=== PATIENT | male | born 1960 | race Caucasian/White ===

== ENCOUNTER → 2017-12-17 | Outpatient (CLI) | payer MEDICARE ==
[~2017-12-17] MED LIST: ALBUTEROL0.09 MG/AC INH; BACTRIM DS 8001 TA1 PO; CLINDAMYCIN HC300 MG PO; FLEXERIL10 MG PO; FLEXERIL5 MG PO; GABAPENTIN300 M1 PO; LYRICA75 MG PO; Lopressor25 MG PO; MOTRIN800 MG PO; Magnesium Oxid400 MG PO; NUCYNTA75 MG PO; PRILOSEC20 MG PO; TRAMADOL HCL50 MG PO; ULTRAM50 MG PO
== END | disposition home or self-care (01) ==
LOC: RAD 07:29
DX: M25.511 Pain in right shoulder (principal); M25.512 Pain in left shoulder

== ENCOUNTER 2018-09-09 02:33 | Inpatient (IN) | payer MEDICARE ==
[2018-09-09] VITALS (14 sets, daily range): BP systolic 94–152; BP diastolic 60–85
[~2018-09-09] VITALS: Ht 175.2 cm; Wt 69.2 kg
--- NOTE | ~2018-09-09 | EKG ---
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
--- NOTE | ~2018-09-09 | CON ---
[place], [place] REPORT OF CONSULTATION NAME: JEFFREY DUTTA UNIT #: [id number] ROOM: 507 DOCTOR: MAGEN KNOTT [place] BIRTHDATE: [birth year] DOS: 09/09/2018 GASTROENDOSCOPIC CONSULTATION HISTORY OF PRESENT ILLNESS: A 58-year-old patient who presented with chief complaint of abdominal pain, epigastric distress, not feeling well, being tired. The patient had complained of left lower quadrant pain, cross abdominal pain and eventually through the Emergency Room a panel of workup was done including his INR was 1.0. Lactic acid 2.5. Comprehensive metabolic panel GFR greater than 60. His sodium was 129 and his total bilirubin 1.3 with a lipase of 2900, C-reactive protein obviously elevated, troponin negative. CT scan of the abdomen and pelvis was done. Moderate stool throughout the colon and rectum suggesting constipation, generalized osteopenia. CBC: White blood cell 6, H and H of 6 and 18[address]cy[address] indices. CT scan of the abdomen was reviewed. Status post transfusion of packed cells x 2. Improvement of H and H 7.8 and 22, platelets 155. Comprehensive metabolic panel was reassessed. Sodium has corrected to 134, bilirubin 1.6, alkaline phosphatase normal. PAST MEDICAL HISTORY: COPD, chronic anemia, alcohol dependency, systemic hypertension, gastroesophageal reflux, Parkinson's history. PAST SURGICAL HISTORY: Tracheostomy and PEG tube in the past and bleeding from the site and eventual recovery of the appetite and swallowing and removal of PEG. FAMILY HISTORY: Noncontributory. ALLERGIES: No known medication. SOCIAL HISTORY: Smoker of a pack and half cigarettes, a 6-pack of beer daily and pain medications. MEDICATIONS: List reviewed. He has been on beta dana and PPI amongst the other. REVIEW OF SYSTEMS: HEENT: Denies double vision, blurred vision. RESPIRATORY: Denies shortness of breath. CARDIOVASCULAR: Denies chest pain. DIGESTIVE SYSTEM: Nonspecific abdominal pain and not feeling as well as tiredness. PHYSICAL EXAMINATION: VITAL SIGNS: Stable. The patient is pink in color. HEENT: In general facial characteristics of the pink puffers. NECK: Supple, no thyromegaly. CHEST: Symmetric anatomy, decreased air entry in general. No wheezes. HEART: Normal sinus rhythm, no gallop, no murmur. ABDOMEN: Cross abdominal nonspecific tenderness. Bowel sounds present. EXTREMITIES: No cyanosis, no pedal edema. [place], [place] REPORT OF CONSULTATION NAME: JEFFREY DUTTA UNIT #: [id number] ROOM: 507 DOCTOR: YOKASTA KNOTT MD BIRTHDATE: [birth year] NEUROLOGIC: Alert and oriented to time, place, person. Sensory, motor intact. Cranial nerves 2-12 intact. IMPRESSION: Pancreatitis secondary to multifactorial issues, alcohol and nicotine dependency, chronic alcoholism with macrocytic indices, possible folate deficiency, anemia, profound level, status post transfusion. PLAN AND DISCUSSION: This patient has had a CT scan that had showed hypertrophic fold of the stomach. Biopsies will be done ruling out Menetrier's disease, work in progress. YOKASTA KNOTT MD CM:CONSTR:REPORT OF CONSULTATION 1935 09/23/18 1427 interface
--- NOTE | ~2018-09-09 | O ---
[place], [place] OPERATIVE NOTE NAME: JEFFREY DUTTA UNIT #: [id number] ROOM: 507 DOCTOR: HEDY ROSA,YOKASTA BIRTHDATE: [birth year] DOS: 09/09/2018 SUBJECTIVE: The patient has presented with anemia, profound and cross abdominal pain with pancreatitis. PROCEDURE: Today's procedure part of investigation is panendoscopy plus biopsies. PREMEDICATION: Propofol. SCOPE: Olympus forward-viewing gastroscope Q10 video. REPORT: After putting the patient in left lateral position and application of lubricant to the scope, the scope was introduced; thereafter, under direct visualization, advanced through the length of esophagus without difficulty. The esophagus was free of esophageal varicosity. Gastric pouch was entered, hypertrophic fold of the stomach was noticed in greater and lesser curvature. Multiple biopsies were obtained. The tissue is soft on tension and multiple biopsy from the greater curvature of hypertrophic fold was obtained after photographic series ruling G-cell hyperplasia and antrum was biopsied ruling out H. pylori to rule out infectious causes. Duodenal bulb, second and third part beyond ligament of Treitz was checked, benign. The patient extubated, tolerated the procedure well. IMPRESSION: Hypertrophic fold, gastric pouch ruling out Menetrier's disease, ruling out H. pylori. No GI bleed in the upper GI tract. PLAN AND DISCUSSION: Awaiting biopsy report. At the present time, 40 mg of PPI would suffice, transfusion would suffice, management of pancreatitis with hydration is going to be on the way and workup in progress. YOKASTA KNOTT MD CM:OPRECORD:OPERATIVE NOTE [id number] YOKASTA KNOTT MD 09/16/18 1544 interface
[2018-09-09] MEDS ORDERED: PERCOCET 7.5-31 EACH PO (02:42)
[2018-09-09] MEDS ORDERED: PROTONIX40 MG PO (02:43)
[2018-09-09] MEDS ORDERED: TRAZODONE50 MG PO (02:44)
[2018-09-09] MEDS ORDERED: MIRAPEX0.5 MG PO (02:44)
--- NOTE | 2018-09-09 03:20 | NUR ---
PATIENT STATES PAIN MED WAS EFFECTIVE FOR PAIN. PATIENT STILL STATES HE HAS PAIN BUT RATES IT 5 OUT OF 10 INSTEAD OF 10 OUT OF 10.
[2018-09-09 03:29] LABS: HEMATOCRIT 18.6 % (42.0-52.0); HEMOGLOBIN 6.7 g/dl (14.0-18.0); MEAN CORPUSCULAR HGB 42.1 pg (27.0-31.0); MEAN PLATELET VOLUME 10.1 fl (9.6-12.3); NUCLEATED RED BLOOD CELL 0.3 % (0.0-0.0); PLATELET COUNT AUTOMATED 197 10*3/uL (130-400); RED BLOOD COUNT 1.59 10*6/uL (4.50-5.90); WHITE BLOOD COUNT 6.4 10*3/uL (4.8-10.8)
[2018-09-09 03:40] LABS: ACT PARTIAL THROMBO TIME 23.4 SECONDS (20.0-32.1)
[2018-09-09 03:45] LABS: ALBUMIN 3.4 gm/dl (3.1-4.5); ALKALINE PHOSPHATASE 86 U/L (45-117); BUN 9 mg/dl (7-24); CHLORIDE 96 mmol/L (98-107); CREATININE 1.13 mg/dL (0.70-1.30); LIPASE 2936 U/L (73-393); POTASSIUM 4.2 mmol/L (3.5-5.1); SGOT/AST 33 IU/L (3-35); SGPT/ALT 34 U/L (12-78); SODIUM 129 mmol/L (136-145); TOTAL PROTEIN 6.9 gm/dL (6.4-8.2); TROPONIN I < 0.015 ng/ml (<0.045)
[2018-09-09 03:58] LABS: TOTAL CELLS COUNTED 100 #CELLS
[2018-09-09 03:59] LABS: PLATELET SUFFICIENCY NORMAL (NORMAL)
--- NOTE | 2018-09-09 04:00 | NUR ---
PATIENT STATES PAIN MEDICATION WAS HELPFUL. PATIENT RATES PAIN FROM 7 OUT OF 10 TO 3OUT OF TEN.
--- NOTE | 2018-09-09 06:37 | NUR ---
A 58, admitted to , under the services of ROMAN Lockwood DO with a diagnosis of PANCREATITIS. Chief complaint is ABD PAIN. Patient arrived via stretcher from ER. Monitor applied. Initial assessment completed. Vital signs taken and recorded. ROMAN LOCKWOOD DO notified of admission to the unit. Orders received. See assessment for past medical history, medications and allergies. Patient and/or family oriented to unit. [facility] visitation policy reviewed. Clothing/patient valuable form completed. RENNY JACOBSEN
--- NOTE | 2018-09-09 06:53 | NUR ---
MED REC COMPLETED WITH PATIENT ALERT AND ORIENTED TO PERSON PLACE AND TIME
--- NOTE | 2018-09-09 07:36 | NUR ---
DR ESCALONA AWARE OF MED REC BEING COMPLETE, PATIENT REQUESTING NICOTINE PATCH, AND HEMOGLOBIN
--- NOTE | 2018-09-09 08:39 | NUR ---
CALLED DR HEDY DE LEON SENIOR BUSINESS INTELLIGENCE ANALYST REQUEST. UPDATED HIM ABOUT PATIENT W/SCAN AND LAB RESULTS. HE SAID TO KEEP HIM NPO FOR NOW AND HE WILL BE IN TO SEE HIM.
--- NOTE | 2018-09-09 13:53 | NUR ---
CALLED ABOUT AN HOUR AGO FOR A ONE TIME DOSE OF MORPHINE. PATIENT IS STILL IN A LOT OF PAIN. HE IS HUNCHED OVER WHILE WALKING. PATIENT HAS ANOTHER DOSE OF MORPHINE HE CAN HAVE NOW.
--- NOTE | 2018-09-09 14:26 | NUR ---
CALLED DR. MONTERROSO REGARDING PATIENT PAIN AND TREMORS. RECEIVED NEW ORDERS.
--- NOTE | 2018-09-09 15:23 | NUR ---
PER PATIENT HE HAS ALWAYS HAD A HISTORY OF TREMORS. HE SAID HE HAS HAD TREMORS EVER SINCE HE WAS ELECTROCUTED. PT SAYS HIS LAST DRINK WAS ON FRIDAY AND HE SAID HE HAD 2-3 CANS OF BEER. HE SAID SOME DAYS HE HAS UP TO 5 BEERS.
--- NOTE | 2018-09-09 15:44 | NUR ---
PT SLEEPING, RESP EASY AND NONLABORED. BLOOD TRANSFUSING PER ORDERS. CALL LIGHT IN REACH. WILL MONITOR.
--- NOTE | 2018-09-09 17:05 | NUR ---
BLOOD TRANSFUSION COMPLETE. PT TOLERATED WELL. VSS. NO ADVERSE REACTION NOTED.
[2018-09-09 18:06] LABS: BASO # 0.1 10*3/uL (0.0-0.1); BASO % 0.9 % (0.0-1.0); EOS % 0.6 % (1.0-4.0); HEMATOCRIT 22.1 % (42.0-52.0); HEMOGLOBIN 7.8 g/dl (14.0-18.0); LYMPH # 1.1 10*3/uL (1.3-4.4); LYMPH % 16.5 % (27.0-41.0); MEAN CORPUSCULAR HGB CONC 35.3 g/dl (33.0-37.0); MEAN PLATELET VOLUME 10.5 fl (9.6-12.3); MONO # 0.6 10*3/uL (0.1-1.0); MONO % 9.4 % (3.0-9.0); NEUT # 4.9 10*3/uL (2.3-7.9); NEUT % 72.3 % (47.0-73.0); NUCLEATED RED BLOOD CELL 0.4 % (0.0-0.0); PLATELET COUNT AUTOMATED 155 10*3/uL (130-400); RED BLOOD COUNT 2.05 10*6/uL (4.50-5.90); RED CELL DISTRI WIDTH 25.6 % (0-14.5); WHITE BLOOD COUNT 6.7 10*3/uL (4.8-10.8)
[2018-09-09 18:10] LABS: MEAN CELL VOLUME 107.8 fl (80.0-94.0)
[2018-09-09 18:21] LABS: ALBUMIN 2.9 gm/dl (3.1-4.5); ALKALINE PHOSPHATASE 73 U/L (45-117); BUN 7 mg/dl (7-24); CHLORIDE 102 mmol/L (98-107); CREATININE 0.78 mg/dL (0.70-1.30); POTASSIUM 3.8 mmol/L (3.5-5.1); SGOT/AST 31 IU/L (3-35); SGPT/ALT 26 U/L (12-78); SODIUM 134 mmol/L (136-145)
--- NOTE | 2018-09-09 21:49 | NUR ---
PATIENT MEDICATED WITH PRN DILAUDID ORDERD FOR C/O ABDOMINAL PAIN RATED 7/10
[2018-09-10] VITALS: BP 117/83
[2018-09-10 02:50] LABS: BILIRUBIN NEGATIVE (NEGATIVE); BLOOD NEGATIVE (NEGATIVE); CLARITY CLEAR (CLEAR); COLOR YELLOW (YELLOW); GLUCOSE NEGATIVE (NEGATIVE); KETONE TRACE (NEGATIVE); LEUKO ESTERASE TRACE (NEGATIVE); NITRITE POSITIVE (NEGATIVE); SPECIFIC GRAVITY 1.015 (1.005-1.030); UROBILINOGEN 0.2 E.U./dl (0.2-1.0)
[2018-09-10 02:55] LABS: BACTERIA TRACE
[2018-09-10 06:57] LABS: HEMATOCRIT 25.1 % (42.0-52.0); HEMOGLOBIN 8.5 g/dl (14.0-18.0); MEAN CELL VOLUME 110.6 fl (80.0-94.0); MEAN CORPUSCULAR HGB 37.4 pg (27.0-31.0); MEAN CORPUSCULAR HGB CONC 33.9 g/dl (33.0-37.0); MEAN PLATELET VOLUME 11.2 fl (9.6-12.3); PLATELET COUNT AUTOMATED 166 10*3/uL (130-400); RED BLOOD COUNT 2.27 10*6/uL (4.50-5.90); RED CELL DISTRI WIDTH 26.3 % (0-14.5); WHITE BLOOD COUNT 7.5 10*3/uL (4.8-10.8)
[2018-09-10 07:10] LABS: ALKALINE PHOSPHATASE 76 U/L (45-117); BUN 8 mg/dl (7-24); CHLORIDE 103 mmol/L (98-107); CHOLESTEROL 117 mg/dL (<200); CREATININE 0.74 mg/dL (0.70-1.30); HDL CHOLESTEROL 71 mg/dl (40-60); LDL CHOLESTEROL 32 mg/dL (9-159); LIPASE 209 U/L (73-393); POTASSIUM 3.7 mmol/L (3.5-5.1); SGOT/AST 33 IU/L (3-35); SGPT/ALT 27 U/L (12-78); SODIUM 136 mmol/L (136-145); TOTAL PROTEIN 6.2 gm/dL (6.4-8.2); TRIGLYCERIDES 71 mg/dl (<150); VLDL CHOLESTEROL 14 mg/dL (6-40)
[2018-09-10 07:28] LABS: POLYCHROMASIA SLIGHT; TOTAL CELLS COUNTED 100 #CELLS
[2018-09-10 07:29] LABS: PLATELET SUFFICIENCY NORMAL (NORMAL)
[2018-09-10 07:51] LABS: VITAMIN D, 25-HYDROXY 15.7 ng/mL (30-100)
[2018-09-10 08:00] VITALS: BP 112/64
--- NOTE | 2018-09-10 10:00 | NUR ---
PT COMPLAIN OF ABODMINAL PAIN, NORCO GIVEN
--- NOTE | 2018-09-10 10:10 | NUR ---
PT COMPLAIN OF ABDOMINAL PAIN 09/16. NORCO GIVEN. GIVEN SCHEDULED ATIVAN. PT ALERT AND ORIENTED HOWEVER FORGETFUL. STATES WHEN HE WOKE UP HE THOUGHT HE WAS AT HOME. PT ASSISTED TO BATHROOM AND BACK TO BED.
--- NOTE | 2018-09-10 11:00 | NUR ---
PT SLEEPING/RESING QUIETLY, NO NEEDS NOTED AT THIS TIME
[2018-09-10 12:00] VITALS: BP 126/69
--- NOTE | 2018-09-10 12:25 | NUR ---
PT COMPLAIN OF PAIN, DILAUDID GIVEN
--- NOTE | 2018-09-10 12:36 | NUR ---
MEDICATED WITH PRN IV DILAUDID FOR ABDOMINAL PAIN.
--- NOTE | 2018-09-10 13:00 | NUR ---
PT SLEEPING/RESTING QUIETLY
[2018-09-10 16:00] VITALS: BP 118/66
--- NOTE | 2018-09-10 16:28 | NUR ---
PT COMPLAIN OF STOMACH PAIN 09/16, NORCO GIVEN.
--- NOTE | 2018-09-10 17:25 | NUR ---
pt resting in bed
--- NOTE | 2018-09-10 18:54 | NUR ---
pt was sitting up in chair with chair alarm on, pt walked out to nursing station holding chair alarm. states he "unhooked it, i know all the tricks in the book" assisted patient back to bed, alarm on.
--- NOTE | 2018-09-10 19:00 | NUR ---
PT IS ASLEEP WITH FAMILY AT BEDSIDE. UPON ENTERING ROOM PATIENT AWAKENS AND STATES THAT HE IS EXPERIENCING ABDOMINAL PAIN AND IS REQUESTING PAIN MEDICATION. PATIENT WAS EDUCATED ON THE NEXT AVAILABLE DOSE. THERE DOES NOT APPEAR TO BE ANY VISIBLE TREMORS AND PATIENT DENIES ALL OTHER WITHDRAWAL SYMPTOMS. CALL LIGHT IS WITHIN REACH, BED ALARM ON. WILL MEDICATE WHEN DUE.
--- NOTE | 2018-09-10 19:39 | NUR ---
24 HR CHART CHECK COMPLETE.
[2018-09-10 20:00] VITALS: BP 117/68
[2018-09-11] VITALS: BP 126/73
[2018-09-11 05:52] LABS: HEMATOCRIT 24.3 % (42.0-52.0); HEMOGLOBIN 8.1 g/dl (14.0-18.0); MEAN CORPUSCULAR HGB 37.3 pg (27.0-31.0); MEAN CORPUSCULAR HGB CONC 33.3 g/dl (33.0-37.0); PLATELET COUNT AUTOMATED 160 10*3/uL (130-400); RED BLOOD COUNT 2.17 10*6/uL (4.50-5.90); RED CELL DISTRI WIDTH 25.9 % (0-14.5); WHITE BLOOD COUNT 8.1 10*3/uL (4.8-10.8)
[2018-09-11 06:12] LABS: ALBUMIN 2.7 gm/dl (3.1-4.5); ALKALINE PHOSPHATASE 76 U/L (45-117); BUN 8 mg/dl (7-24); CHLORIDE 102 mmol/L (98-107); POTASSIUM 3.1 mmol/L (3.5-5.1); SGOT/AST 37 IU/L (3-35); SGPT/ALT 27 U/L (12-78); SODIUM 135 mmol/L (136-145)
[2018-09-11 06:32] LABS: PLATELET SUFFICIENCY NORMAL (NORMAL); POLYCHROMASIA SLIGHT; ROULEAUX SLIGHT; TOTAL CELLS COUNTED 100 #CELLS
--- NOTE | 2018-09-11 07:46 | NUR ---
PT UP OOB STATING HE IS LEAVING TODAY. BED ALRM GOING OFF AND PT WAS STUMBLING HOLDING ON TO WALKER. PT HELPED BACK TO BED AND MEDICATED WITH PRN ATIVAN FOR INCREASED AGITATION. PT ALSO C/O ABDOMINAL PAIN. PT RATES PAIN 10/10 AND MEDICATED WITH PRN DILAUDID.
[2018-09-11] MEDS ORDERED: VITAMIN D32000 UNI1 PO (10:39)
--- NOTE | 2018-09-11 11:16 | NUR ---
PT DISCHARGED HOME AT THIS TIME WITH HIS . PT TRANSPORTED OUT VIA WHEELCHAIR. BOTH HEPLOCKS AND DECORATING CONSULTANT DISCONTINUED. FOLLOW UP CARE DISCUSSED WELL DISCHARGE INSTRUCTIONS.
== END 2018-09-11 11:16 | disposition home or self-care (01) | DRG 377 ==
LOC: ED 02:33 → 5E 06:09 → EDHOLD 06:09 → 5E 06:22
PROVIDERS: Emergency Medicine Emergency Medical Services; Internal Medicine; Student in an Organized Health Care Education/Training Program; ADMIT Internal Medicine
PROC: 30233N1 Transfusion of Nonautologous Red Blood Cells into Peripheral Vein, Percutaneous Approach (ICD-10-PCS; principal; 2018-09-09)
PROC: 0DB68ZX Excision of Stomach, Via Natural or Artificial Opening Endoscopic, Diagnostic (ICD-10-PCS; principal; 2018-09-09)
DX: K29.01 Acute gastritis with bleeding (principal); K85.90 Acute pancreatitis without necrosis or infection, unspecified; E87.2 Acidosis; E87.1 Hypo-osmolality and hyponatremia; N39.0 Urinary tract infection, site not specified; Z85.038 Personal history of other malignant neoplasm of large intestine; K57.90 Diverticulosis of intestine, part unspecified, without perforation or abscess without bleeding; J44.9 Chronic obstructive pulmonary disease, unspecified; I10 Essential (primary) hypertension; K21.9 Gastro-esophageal reflux disease without esophagitis; G20 Parkinson's disease; D64.9 Anemia, unspecified; F10.20 Alcohol dependence, uncomplicated; Y90.9 Presence of alcohol in blood, level not specified; F17.210 Nicotine dependence, cigarettes, uncomplicated; Z79.899 Other long term (current) drug therapy; Z86.73 Personal history of transient ischemic attack (TIA), and cerebral infarction without residual deficits; Z82.49 Family history of ischemic heart disease and other diseases of the circulatory system; Z83.3 Family history of diabetes mellitus; Z87.01 Personal history of pneumonia (recurrent); Z93.0 Tracheostomy status; Z93.1 Gastrostomy status

== ENCOUNTER → 2018-09-30 | Day surgery (SDC) | payer MEDICARE ==
[~2018-09-30] VITALS: Ht 175.2 cm; Wt 71.7 kg
[~2018-09-30] MED LIST changes: +MIRAPEX0.5 MG PO; +PERCOCET 7.5-31 EACH PO; +PROTONIX40 MG PO; +TRAZODONE50 MG PO; +VITAMIN D32000 UNI1 PO
--- NOTE | ~2018-09-30 | O ---
[place], [place] OPERATIVE NOTE NAME: JEFFREY DUTTA UNIT #: [id number] ROOM: DOCTOR: YOKASTA KNOTT MD BIRTHDATE: [birth year] DOS: 09/30/2018 HISTORY OF PRESENT ILLNESS: The patient has presented with chief complaint of history of anemia, profound degree with H and H of 7 and 21, status post transfusion of 2 units packed cell on 09/10/2018, undergoing further followup as outpatient. PAST MEDICAL HISTORY: Associated hypertension, Parkinsonism, CVA, TIA, and GERD. SOCIAL HISTORY: Smoker of [id number] pack a day, 6 pack alcohol beer a day. PROCEDURE: Today's procedure part of investigation is colonoscopy plus piecemeal polypectomy. PREMEDICATION: Propofol. SCOPE: Olympus forward-viewing colonoscope 10L video. REPORT: After putting the patient in left lateral position and application of lubricant to the scope, scope was introduced. Thereafter, under direct visualization, advanced through the length of colon without difficulty. Base of the cecum explored. Appendiceal site and ileocecal valve was defined. No acute pathology identified. Sessile polypoid lesion in sigmoid colon with piecemeal polypectomy removed. The patient tolerated the procedure well. IMPRESSION: Sessile colonic polyp. No source of bleed from lower gastrointestinal tract. PLAN: High fiber. ACTIVITY: Ad denise. FOLLOWUP: As outpatient. Thank you very much indeed for your kind referral. [place], [place] OPERATIVE NOTE NAME: JEFFREY DUTTA UNIT #: [id number] ROOM: DOCTOR: YOKASTA KNOTT MD BIRTHDATE: [birth year] YOKASTA KNOTT MD CM:OPRECORD:OPERATIVE NOTE [id number] YOKASTA KNOTT MD 09/30/18 1320 interface
[2018-09-30 10:15] VITALS: BP 115/58
[2018-09-30 11:18] VITALS: BP 101/54
[2018-09-30 11:33] VITALS: BP 107/59
[2018-09-30 11:48] VITALS: BP 110/64
== END | disposition home or self-care (01) ==
LOC: SDC 09-24 08:45
DX: K63.5 Polyp of colon (principal); D64.9 Anemia, unspecified; I10 Essential (primary) hypertension; K21.9 Gastro-esophageal reflux disease without esophagitis; G20 Parkinson's disease; Z86.73 Personal history of transient ischemic attack (TIA), and cerebral infarction without residual deficits; Z72.89 Other problems related to lifestyle; Z86.010 Personal history of colon polyps; Z85.038 Personal history of other malignant neoplasm of large intestine; Z79.899 Other long term (current) drug therapy; Z98.890 Other specified postprocedural states; F17.210 Nicotine dependence, cigarettes, uncomplicated

== ENCOUNTER → 2019-09-08 | Outpatient (CLI) | payer MEDICARE ==
[2019-09-08 10:07] LABS: MEAN CELL VOLUME 122.5 fl (80.0-94.0); MEAN CORPUSCULAR HGB 42.7 pg (27.0-31.0); MEAN CORPUSCULAR HGB CONC 34.9 g/dl (33.0-37.0); MEAN PLATELET VOLUME 11.3 fl (9.6-12.3); NUCLEATED RED BLOOD CELL 0.7 % (0.0-0.0); RED BLOOD COUNT 0.89 10*6/uL (4.50-5.90)
[2019-09-08 10:11] LABS: HEMATOCRIT 10.9 % (42.0-52.0)
[2019-09-08 10:37] LABS: ALBUMIN 3.1 gm/dl (3.1-4.5); BUN 8 mg/dl (7-24); CHLORIDE 96 mmol/L (98-107); CHOLESTEROL 87 mg/dL (<200); CREATININE 1.05 mg/dL (0.70-1.30); HDL CHOLESTEROL 55 mg/dl (40-60); IRON 264 ug/dL (65-175); POTASSIUM 4.4 mmol/L (3.5-5.1); SGOT/AST 37 IU/L (3-35); SGPT/ALT 30 U/L (12-78); SODIUM 126 mmol/L (136-145)
[2019-09-08 10:39] LABS: ALKALINE PHOSPHATASE 87 U/L (45-117); LDL CHOLESTEROL 21 mg/dL (9-159); TOTAL PROTEIN 6.8 gm/dL (6.4-8.2); TRIGLYCERIDES 56 mg/dl (<150); VLDL CHOLESTEROL 11 mg/dL (6-40)
== END | disposition home or self-care (01) ==
LOC: LAB 09:33
PROVIDERS: Registered Nurse Flight
DX: Z12.5 Encounter for screening for malignant neoplasm of prostate (principal); R97.20 Elevated prostate specific antigen [PSA]; D64.9 Anemia, unspecified; R79.89 Other specified abnormal findings of blood chemistry

== ENCOUNTER 2019-09-09 23:16 | Inpatient (IN) | payer MEDICARE ==
[~2019-09-09] VITALS: Ht 175.3 cm; Wt 75.4 kg
[2019-09-09 23:27] VITALS: BP 108/54
[2019-09-10] VITALS (30 sets, daily range): BP systolic 92–122; BP diastolic 43–72
[2019-09-10 00:10] LABS: ACT PARTIAL THROMBO TIME 27.6 SECONDS (20.0-32.1); INTERNATIONAL NORM RATIO 1.1 (2.0-3.5)
[2019-09-10 00:17] LABS: ALBUMIN 3.1 gm/dl (3.1-4.5); ALKALINE PHOSPHATASE 82 U/L (45-117); BUN 9 mg/dl (7-24); CHLORIDE 94 mmol/L (98-107); CREATININE 0.96 mg/dL (0.70-1.30); POTASSIUM 3.9 mmol/L (3.5-5.1); SGOT/AST 35 IU/L (3-35); SGPT/ALT 27 U/L (12-78); SODIUM 124 mmol/L (136-145); TOTAL PROTEIN 6.6 gm/dL (6.4-8.2)
[2019-09-10 00:19] LABS: MEAN CELL VOLUME 125.3 fl (80.0-94.0); MEAN CORPUSCULAR HGB 41.8 pg (27.0-31.0); MEAN CORPUSCULAR HGB CONC 33.3 g/dl (33.0-37.0); MEAN PLATELET VOLUME 11.6 fl (9.6-12.3); NUCLEATED RED BLOOD CELL 0.1 10*3/uL (0.0-0.0); NUCLEATED RED BLOOD CELL 1.2 % (0.0-0.0); PLATELET COUNT AUTOMATED 99 10*3/uL (130-400); RED BLOOD COUNT 0.79 10*6/uL (4.50-5.90); RED CELL DISTRI WIDTH 25.2 % (0-14.5); WHITE BLOOD COUNT 4.3 10*3/uL (4.8-10.8)
[2019-09-10 00:31] LABS: HEMATOCRIT 9.9 % (42.0-52.0)
[2019-09-10 01:09] LABS: TOTAL CELLS COUNTED 100 #CELLS
[2019-09-10 01:15] LABS: PLATELET SUFFICIENCY LOW (NORMAL); SCHISTOCYTES FEW
[2019-09-10 07:20] LABS: MEAN CORPUSCULAR HGB 36.3 pg (27.0-31.0); PLATELET COUNT AUTOMATED 100 10*3/uL (130-400); RED BLOOD COUNT 1.71 10*6/uL (4.50-5.90); RED CELL DISTRI WIDTH 25.2 % (0-14.5)
[2019-09-10 07:24] LABS: MEAN CELL VOLUME 100.6 fl (80.0-94.0)
[2019-09-10 07:26] LABS: ALBUMIN 2.9 gm/dl (3.1-4.5); ALKALINE PHOSPHATASE 73 U/L (45-117); BUN 9 mg/dl (7-24); CHLORIDE 99 mmol/L (98-107); CHOLESTEROL 82 mg/dL (<200); CREATININE 0.84 mg/dL (0.70-1.30); HDL CHOLESTEROL 48 mg/dl (40-60); HEMATOCRIT 17.2 % (42.0-52.0); IRON 242 ug/dL (65-175); LDH 149 U/L (87-241); LDL CHOLESTEROL 22 mg/dL (9-159); POTASSIUM 4.1 mmol/L (3.5-5.1); SGOT/AST 34 IU/L (3-35); SGPT/ALT 22 U/L (12-78); SODIUM 129 mmol/L (136-145); TRIGLYCERIDES 60 mg/dl (<150); VLDL CHOLESTEROL 12 mg/dL (6-40)
[2019-09-10 07:34] LABS: FREE T4 0.98 ng/dl (0.76-1.46); TOTAL IRON BINDING CAPACITY 246 ug/dl (250-450)
[2019-09-10 07:41] LABS: BASOPHILS 2 % (0-1); PLATELET SUFFICIENCY LOW (NORMAL); TOTAL CELLS COUNTED 100 #CELLS
[2019-09-10 08:20] LABS: RETICULOCYTE % 2.56 % (0.50-2.50)
[2019-09-10 08:44] LABS: VITAMIN D, 25-HYDROXY 18.4 ng/mL (30-100)
[2019-09-10 10:03] LABS: BILIRUBIN NEGATIVE (NEGATIVE); BLOOD NEGATIVE (NEGATIVE); CLARITY CLEAR (CLEAR); COLOR YELLOW (YELLOW); EPITHELIAL CELLS 0-2; GLUCOSE NEGATIVE (NEGATIVE); KETONE NEGATIVE (NEGATIVE); LEUKO ESTERASE NEGATIVE (NEGATIVE); NITRITE NEGATIVE (NEGATIVE); PH 6.5 (5.0-9.0); RBC 0-2 rbc/hpf (0-2); SPECIFIC GRAVITY 1.005 (1.005-1.030); UROBILINOGEN 0.2 E.U./dl (0.2-1.0); WBC 0-2 wbc/hpf (0-5)
[2019-09-10 13:10] LABS: HEMATOCRIT 23.4 % (42.0-52.0); MEAN CELL VOLUME 97.9 fl (80.0-94.0); MEAN CORPUSCULAR HGB 34.7 pg (27.0-31.0); MEAN CORPUSCULAR HGB CONC 35.5 g/dl (33.0-37.0); MEAN PLATELET VOLUME 11.9 fl (9.6-12.3); NUCLEATED RED BLOOD CELL 0.1 10*3/uL (0.0-0.0); NUCLEATED RED BLOOD CELL 1.7 % (0.0-0.0); PLATELET COUNT AUTOMATED 105 10*3/uL (130-400); RED BLOOD COUNT 2.39 10*6/uL (4.50-5.90); RED CELL DISTRI WIDTH 25.2 % (0-14.5); WHITE BLOOD COUNT 4.8 10*3/uL (4.8-10.8)
[2019-09-10 13:32] LABS: PLATELET SUFFICIENCY LOW (NORMAL); TOTAL CELLS COUNTED 100 #CELLS
[2019-09-10 19:07] LABS: HEMATOCRIT 28.4 % (42.0-52.0); MEAN CELL VOLUME 96.9 fl (80.0-94.0); MEAN CORPUSCULAR HGB 33.8 pg (27.0-31.0); MEAN CORPUSCULAR HGB CONC 34.9 g/dl (33.0-37.0); NUCLEATED RED BLOOD CELL 0.1 10*3/uL (0.0-0.0); PLATELET COUNT AUTOMATED 99 10*3/uL (130-400); RED BLOOD COUNT 2.93 10*6/uL (4.50-5.90); RED CELL DISTRI WIDTH 24.1 % (0-14.5)
[2019-09-10 19:24] LABS: TOTAL CELLS COUNTED 100 #CELLS
[2019-09-10 19:25] LABS: BURR CELLS FEW; PLATELET SUFFICIENCY LOW (NORMAL)
[2019-09-10 19:26] LABS: ACANTHOCYTES FEW; OVALOCYTES FEW
[2019-09-11] VITALS: BP 114/61
[2019-09-11 04:00] VITALS: BP 119/50
[2019-09-11 05:50] LABS: BUN 16 mg/dl (7-24); CHLORIDE 100 mmol/L (98-107); POTASSIUM 3.9 mmol/L (3.5-5.1); SODIUM 131 mmol/L (136-145)
[2019-09-11 06:22] LABS: HEMATOCRIT 23.9 % (42.0-52.0); MEAN CORPUSCULAR HGB 34.4 pg (27.0-31.0); MEAN CORPUSCULAR HGB CONC 35.1 g/dl (33.0-37.0); MEAN PLATELET VOLUME 11.8 fl (9.6-12.3); NUCLEATED RED BLOOD CELL 0.1 10*3/uL (0.0-0.0); NUCLEATED RED BLOOD CELL 1.7 % (0.0-0.0); PLATELET COUNT AUTOMATED 82 10*3/uL (130-400); RED BLOOD COUNT 2.44 10*6/uL (4.50-5.90); RED CELL DISTRI WIDTH 24.2 % (0-14.5); WHITE BLOOD COUNT 3.5 10*3/uL (4.8-10.8)
[2019-09-11 06:54] LABS: BASOPHILS 1 % (0-1); TOTAL CELLS COUNTED 100 #CELLS
[2019-09-11 06:55] LABS: BURR CELLS FEW; OVALOCYTES FEW; PLATELET SUFFICIENCY LOW (NORMAL); TARGET CELLS FEW
[2019-09-11 08:00] VITALS: BP 102/44
[2019-09-11] MEDS ORDERED: NATURE'S BLEND F1 MG PO (09:22)
[2019-09-11] MEDS ORDERED: PREDNISONE10 MG PO (09:22)
[2019-09-11] MEDS ORDERED: DOXYCYCLINE100 M3 PO (09:22)
== END 2019-09-11 09:49 | disposition home or self-care (01) | DRG 809 ==
LOC: ED 23:16 → EDHOLD 09-10 00:10 → ICCU 09-10 00:24
PROVIDERS: Emergency Medicine; Hospitalist; Internal Medicine; ADMIT Family Medicine
PROC: 30233N1 Transfusion of Nonautologous Red Blood Cells into Peripheral Vein, Percutaneous Approach (ICD-10-PCS; principal; 2019-09-10)
DX: D61.818 Other pancytopenia (principal); E87.1 Hypo-osmolality and hyponatremia; E44.0 Moderate protein-calorie malnutrition; K92.2 Gastrointestinal hemorrhage, unspecified; E87.8 Other disorders of electrolyte and fluid balance, not elsewhere classified; E83.51 Hypocalcemia; F17.210 Nicotine dependence, cigarettes, uncomplicated; I10 Essential (primary) hypertension; G20 Parkinson's disease; K21.9 Gastro-esophageal reflux disease without esophagitis; J44.9 Chronic obstructive pulmonary disease, unspecified; F10.10 Alcohol abuse, uncomplicated; Y90.9 Presence of alcohol in blood, level not specified; Z71.6 Tobacco abuse counseling; Z79.899 Other long term (current) drug therapy; Z68.24 Body mass index [BMI] 24.0-24.9, adult

== ENCOUNTER 2019-12-01 22:25 | Inpatient (IN) | payer MEDICARE ==
[~2019-12-01] VITALS: Ht 175.3 cm; Wt 69.9 kg
[~2019-12-01 22:25] MED LIST changes: +DOXYCYCLINE100 M3 PO; +NATURE'S BLEND F1 MG PO; +PREDNISONE10 MG PO
[2019-12-01 22:32] VITALS: BP 86/40
[2019-12-01 22:50] VITALS: BP 102/52
--- NOTE | 2019-12-01 23:00 | NUR ---
in to see pt.
[2019-12-01 23:01] VITALS: BP 100/70
--- NOTE | 2019-12-01 23:02 | NUR ---
Iv attempt x2 at this time.
[2019-12-01 23:22] LABS: BASO % 0.3 % (0.0-1.0); EOS % 0.3 % (1.0-4.0); LYMPH # 1.1 10*3/uL (1.3-4.4); MEAN CELL VOLUME 120.6 fl (80.0-94.0); MEAN CORPUSCULAR HGB 39.7 pg (27.0-31.0); MEAN CORPUSCULAR HGB CONC 32.9 g/dl (33.0-37.0); MONO # 0.4 10*3/uL (0.1-1.0); MONO % 9.6 % (3.0-9.0); NEUT # 2.1 10*3/uL (2.3-7.9); NEUT % 58.5 % (47.0-73.0); NUCLEATED RED BLOOD CELL 1.1 % (0.0-0.0); PLATELET COUNT AUTOMATED 101 10*3/uL (130-400); RED BLOOD COUNT 0.68 10*6/uL (4.50-5.90); WHITE BLOOD COUNT 3.6 10*3/uL (4.8-10.8)
--- NOTE | 2019-12-01 23:25 | NUR ---
Trace edema noted to b/l lower legs and feet at this time.
[2019-12-01 23:28] LABS: INTERNATIONAL NORM RATIO 1.2 (2.0-3.5)
[2019-12-01 23:32] VITALS: BP 86/44
--- NOTE | 2019-12-01 23:34 | NUR ---
aware of blood pressure in the 80s systolic and map in the 60s.Orders to wait till lab results come back at this time.
[2019-12-01 23:37] LABS: ALKALINE PHOSPHATASE 75 U/L (45-117); BUN 10 mg/dl (7-24); CHLORIDE 93 mmol/L (98-107); CREATININE 0.88 mg/dL (0.70-1.30); POTASSIUM 3.8 mmol/L (3.5-5.1); SGOT/AST 62 IU/L (3-35); SGPT/ALT 51 U/L (12-78); SODIUM 123 mmol/L (136-145); TOTAL PROTEIN 6.2 gm/dL (6.4-8.2)
[2019-12-01 23:40] LABS: TROPONIN I < 0.015 ng/ml (<0.045)
[2019-12-01 23:55] VITALS: BP 81/40
--- NOTE | 2019-12-01 23:55 | NUR ---
In to see pt at this time.Pt states he is not dizzy and feeling ok at this time.Pts bed placed back and he is resting at this time.
[2019-12-02] VITALS (38 sets, daily range): BP systolic 81–133; BP diastolic 38–82
[2019-12-02 00:05] LABS: RED CELL DISTRI WIDTH 26.7 % (0-14.5)
[2019-12-02 00:06] LABS: HEMATOCRIT 8.2 % (42.0-52.0)
[2019-12-02 00:10] LABS: BURR CELLS FEW; PLATELET SUFFICIENCY LOW (NORMAL); TOTAL CELLS COUNTED 100 #CELLS
[2019-12-02 00:11] LABS: OVALOCYTES FEW
--- NOTE | 2019-12-02 00:14 | NUR ---
Pt signed blood consent and has no questions at this time.
--- NOTE | 2019-12-02 00:28 | NUR ---
Family updated on pt status at this time.
--- NOTE | 2019-12-02 00:29 | NUR ---
Pt refusing to take pants off at this time.Pt denies open wounds at this time.
--- NOTE | 2019-12-02 00:30 | NUR ---
Spoke lab at this time.Stated blood would be ready in 10 to 15 mins.
--- NOTE | 2019-12-02 01:10 | NUR ---
Blood increased to 150cc an hour at this time.
--- NOTE | 2019-12-02 01:25 | NUR ---
A 59, admitted to ICCU, under the services of ERIC Vaughn DO with a diagnosis of SEVERE ANEMIA, HYPONATREMIA. Chief complaint is WEAKNESS, SOB, FATIGUE. Patient arrived via stretcher from ER. Monitor applied. Initial assessment completed. Vital signs taken and recorded. ERIC VAUGHN DO notified of admission to the unit. Orders received. See assessment for past medical history, medications and allergies. Patient and/or family oriented to unit. [facility] ICCU visitation policy reviewed. Clothing/patient valuable form completed. CARMEN SCOTT
[2019-12-02 10:53] LABS: MEAN CORPUSCULAR HGB 33.5 pg (27.0-31.0); MEAN CORPUSCULAR HGB CONC 35.5 g/dl (33.0-37.0); MEAN PLATELET VOLUME 11.6 fl (9.6-12.3); NUCLEATED RED BLOOD CELL 0.1 10*3/uL (0.0-0.0); NUCLEATED RED BLOOD CELL 1.4 % (0.0-0.0); PLATELET COUNT AUTOMATED 87 10*3/uL (130-400); RED BLOOD COUNT 1.79 10*6/uL (4.50-5.90); RED CELL DISTRI WIDTH 23.9 % (0-14.5); WHITE BLOOD COUNT 5.2 10*3/uL (4.8-10.8)
[2019-12-02 10:54] LABS: MEAN CELL VOLUME 94.4 fl (80.0-94.0)
[2019-12-02 10:56] LABS: HEMATOCRIT 16.9 % (42.0-52.0)
[2019-12-02 10:59] LABS: BUN 11 mg/dl (7-24); CHLORIDE 98 mmol/L (98-107); CREATININE 0.77 mg/dL (0.70-1.30); POTASSIUM 3.8 mmol/L (3.5-5.1); SODIUM 128 mmol/L (136-145)
[2019-12-02 11:05] LABS: BASOPHILS 2 % (0-1); BURR CELLS FEW; PLATELET SUFFICIENCY LOW (NORMAL); POLYCHROMASIA SLIGHT; TARGET CELLS FEW; TOTAL CELLS COUNTED 100 #CELLS
--- NOTE | 2019-12-02 12:11 | NUR ---
Informed consent obtained from patient for Blood transfussion by Dr. humphrey. Patient identified by arm band. Vital signs recorded. Blood unit number verified by 2 R.N.'s. I.V. site satisfactory. Unit 75 started at a KVO rate with Normal Saline. BERNARD BARTON
--- NOTE | 2019-12-02 12:13 | NUR ---
Pt requested and was medicated with Percocet for c/o bilat shoulder pain. Call light in reach will monitor.
[2019-12-02 16:17] LABS: MEAN CELL VOLUME 93.3 fl (80.0-94.0); MEAN CORPUSCULAR HGB 32.9 pg (27.0-31.0); MEAN CORPUSCULAR HGB CONC 35.2 g/dl (33.0-37.0); MEAN PLATELET VOLUME 10.9 fl (9.6-12.3); NUCLEATED RED BLOOD CELL 0.1 10*3/uL (0.0-0.0); NUCLEATED RED BLOOD CELL 1.2 % (0.0-0.0); PLATELET COUNT AUTOMATED 85 10*3/uL (130-400); RED CELL DISTRI WIDTH 23.5 % (0-14.5); WHITE BLOOD COUNT 4.3 10*3/uL (4.8-10.8)
[2019-12-02 16:20] LABS: HEMATOCRIT 19.6 % (42.0-52.0)
[2019-12-02 16:52] LABS: PLATELET SUFFICIENCY LOW (NORMAL); TOTAL CELLS COUNTED 100 #CELLS
[2019-12-02 21:46] LABS: BASO % 0.6 % (0.0-1.0); EOS % 0.6 % (1.0-4.0); HEMATOCRIT 22.1 % (42.0-52.0); LYMPH # 1.1 10*3/uL (1.3-4.4); LYMPH % 21.6 % (27.0-41.0); MEAN CELL VOLUME 92.5 fl (80.0-94.0); MEAN CORPUSCULAR HGB 32.2 pg (27.0-31.0); MEAN CORPUSCULAR HGB CONC 34.8 g/dl (33.0-37.0); MEAN PLATELET VOLUME 11.6 fl (9.6-12.3); MONO # 0.5 10*3/uL (0.1-1.0); MONO % 9.7 % (3.0-9.0); NEUT # 3.4 10*3/uL (2.3-7.9); NEUT % 67.1 % (47.0-73.0); NUCLEATED RED BLOOD CELL 0.8 % (0.0-0.0); PLATELET COUNT AUTOMATED 82 10*3/uL (130-400); RED BLOOD COUNT 2.39 10*6/uL (4.50-5.90); RED CELL DISTRI WIDTH 21.5 % (0-14.5)
--- NOTE | 2019-12-02 22:11 | NUR ---
DR CURRIE NOTIFIED OF CBC RESULTS. NO NEW ORDERS AT THIS TIME.
[2019-12-03] VITALS: BP 116/61
[2019-12-03 04:00] VITALS: BP 105/60
[2019-12-03 05:26] LABS: ALBUMIN 2.6 gm/dl (3.1-4.5); ALKALINE PHOSPHATASE 71 U/L (45-117); BUN 12 mg/dl (7-24); CHLORIDE 102 mmol/L (98-107); CHOLESTEROL 77 mg/dL (<200); CREATININE 0.74 mg/dL (0.70-1.30); HDL CHOLESTEROL 41 mg/dl (40-60); LDL CHOLESTEROL 23 mg/dL (9-159); POTASSIUM 3.4 mmol/L (3.5-5.1); SGOT/AST 53 IU/L (3-35); SGPT/ALT 41 U/L (12-78); SODIUM 131 mmol/L (136-145); TOTAL PROTEIN 5.3 gm/dL (6.4-8.2); TRIGLYCERIDES 63 mg/dl (<150); VLDL CHOLESTEROL 13 mg/dL (6-40)
[2019-12-03 05:57] LABS: BASO # 0.1 10*3/uL (0.0-0.1); BASO % 1.4 % (0.0-1.0); EOS % 0.9 % (1.0-4.0); LYMPH # 1.4 10*3/uL (1.3-4.4); LYMPH % 31.3 % (27.0-41.0); MEAN CELL VOLUME 92.4 fl (80.0-94.0); MEAN CORPUSCULAR HGB 32.9 pg (27.0-31.0); MEAN CORPUSCULAR HGB CONC 35.6 g/dl (33.0-37.0); MEAN PLATELET VOLUME 11.1 fl (9.6-12.3); MONO # 0.5 10*3/uL (0.1-1.0); MONO % 10.7 % (3.0-9.0); NEUT # 2.4 10*3/uL (2.3-7.9); NEUT % 55.5 % (47.0-73.0); NUCLEATED RED BLOOD CELL 0.5 % (0.0-0.0); PLATELET COUNT AUTOMATED 75 10*3/uL (130-400); RED BLOOD COUNT 2.25 10*6/uL (4.50-5.90); RED CELL DISTRI WIDTH 22.2 % (0-14.5); WHITE BLOOD COUNT 4.3 10*3/uL (4.8-10.8)
[2019-12-03 06:01] LABS: HEMATOCRIT 20.8 % (42.0-52.0)
[2019-12-03 08:00] VITALS: BP 102/61
--- NOTE | 2019-12-03 09:00 | NUR ---
Recycler Forklift Driver Truck Driver in to talk to patient. Patient states lives at home with his . There are 0 steps in the home. Physician: [facility]: [facility] Home health services: none Patient's level of ADLs: INDEPENDENT Patient has working utilities: yes DME: none Follow-up physician's appointment after d/c: he prefers to make his own follow up appt with Dr. Massey in [place]. Explained to patient the hospitalist nurse director made him an appt with the resident clinic here at the hospital and he verbalized an understanding but wanted to talk to his about Dr. Massey in [place] first. He was supposed to have an appt with him today. Does patient want to access PORTAL?: no Discharge plan discussed with patient. He lives at home with his . He states he is independent in his ADLs and ambulation. Discussed home health care services and he declines. CM will continue to follow for any discharge planning needs. When medically stable he will be discharged to home. He is anxious about getting discharged today. He states his will provide transportation on discharge. ERIC LEGER
--- NOTE | 2019-12-03 09:49 | NUR ---
Called to patient's room regarding whether or not his insurance will be affected if he leaves the hospital AMA. He is sitting on the edge of his bed. Explained to patient can not guarantee Medicare will or will not pay for his hospital stay if he leaves AMA. He states if Medicare doesn't want to pay for his stay then he will argue with them at that time. He explained he was upset that there are so many physicians coming in. 2 physicians came in this morning and stated they didn't see a reason why he couldn't be discharged but then another physician came in and said he needed to the stay the night per the patient. He said "They are contradicting themselves." He states he just wants to follow up with Dr. Massey in [place] and if he needs to come back to the hospital for more transfusions then he will. Discussed his HGB being really low on admission and he verbalized an agreement to that and again states he just wants to follow with the doctor in [place]. Nurse and ICCU resident notified.
--- NOTE | 2019-12-03 10:10 | NUR ---
PATIENT SIGNED OUT AGAINST MEDICAL ADVICE. IV AND SOLID WASTE FACILITY SUPERVISOR DISCONTINUED. AWARE AND AUTOMATIC NAILING MACHINE FEEDER NOTIFIED.
== END 2019-12-03 10:10 | disposition left against medical advice (07) | DRG 812 ==
LOC: ED 22:25 → ICCU 12-02 00:38 → EDHOLD 12-02 00:38 → ICCU 12-02 01:12
PROVIDERS: Emergency Medicine; Internal Medicine; ADMIT Internal Medicine; ATTEND Internal Medicine
PROC: 30233N1 Transfusion of Nonautologous Red Blood Cells into Peripheral Vein, Percutaneous Approach (ICD-10-PCS; principal; 2019-12-03)
DX: D53.9 Nutritional anemia, unspecified (principal); D61.818 Other pancytopenia; E87.2 Acidosis; E44.0 Moderate protein-calorie malnutrition; E87.1 Hypo-osmolality and hyponatremia; F17.210 Nicotine dependence, cigarettes, uncomplicated; E83.51 Hypocalcemia; E87.8 Other disorders of electrolyte and fluid balance, not elsewhere classified; R73.9 Hyperglycemia, unspecified; K57.90 Diverticulosis of intestine, part unspecified, without perforation or abscess without bleeding; K21.9 Gastro-esophageal reflux disease without esophagitis; I10 Essential (primary) hypertension; Z68.24 Body mass index [BMI] 24.0-24.9, adult; G20 Parkinson's disease; J44.9 Chronic obstructive pulmonary disease, unspecified; Z53.29 Procedure and treatment not carried out because of patient's decision for other reasons; Z93.0 Tracheostomy status; Z93.1 Gastrostomy status; Z71.6 Tobacco abuse counseling; Z71.3 Dietary counseling and surveillance

== ENCOUNTER 2020-01-25 19:52 | Inpatient (IN) | payer MEDICARE ==
[~2020-01-25] VITALS: Ht 172.7 cm; Wt 74.8 kg
[2020-01-25 20:01] VITALS: BP 111/50
[2020-01-25 20:52] LABS: MEAN CELL VOLUME 111.5 fl (80.0-94.0); MEAN CORPUSCULAR HGB 36.9 pg (27.0-31.0); MEAN CORPUSCULAR HGB CONC 33.1 g/dl (33.0-37.0); MEAN PLATELET VOLUME 12.1 fl (9.6-12.3); NUCLEATED RED BLOOD CELL 0.6 % (0.0-0.0); PLATELET COUNT AUTOMATED 118 10*3/uL (130-400); RED BLOOD COUNT 1.22 10*6/uL (4.50-5.90); WHITE BLOOD COUNT 4.9 10*3/uL (4.8-10.8)
--- NOTE | 2020-01-25 21:00 | NUR ---
PATIENT RESTING AT THIS TIME. CALL LIGHT IN REACH. NS INFUSING.
[2020-01-25 21:03] LABS: HEMATOCRIT 13.6 % (42.0-52.0)
[2020-01-25 21:10] LABS: ALBUMIN 3.3 gm/dl (3.1-4.5); ALKALINE PHOSPHATASE 67 U/L (45-117); BUN 11 mg/dl (7-24); CHLORIDE 98 mmol/L (98-107); CREATININE 0.93 mg/dL (0.70-1.30); POTASSIUM 4.2 mmol/L (3.5-5.1); SGOT/AST 42 IU/L (3-35); SGPT/ALT 32 U/L (12-78); SODIUM 132 mmol/L (136-145); TOTAL PROTEIN 6.7 gm/dL (6.4-8.2)
--- NOTE | 2020-01-25 21:10 | NUR ---
PATIENT ENCOURAGED A URINE SPECEMIN IS NEEDED.
[2020-01-25 21:11] LABS: TROPONIN I < 0.015 ng/ml (<0.045)
[2020-01-25 21:12] LABS: BASOPHILS 2 % (0-1); TOTAL CELLS COUNTED 100 #CELLS
[2020-01-25 21:14] LABS: PLATELET SUFFICIENCY LOW (NORMAL)
[2020-01-25 21:29] VITALS: BP 100/56
--- NOTE | 2020-01-25 21:33 | NUR ---
PATIENT RESTING AT THIS TIME. CALL LIGHT IN REACH. NS CONTINUES TO INFUSE. WILL CONTINUE TO MONITOR PT
[2020-01-25 22:00] VITALS: BP 99/55
--- NOTE | 2020-01-25 22:00 | NUR ---
PATIENT RESTING ON SIDE WITH EYES CLOSED. RESP EASY AND NON LABORED. CALL LIGHT IN REACH. NS INFUSING.
--- NOTE | 2020-01-25 22:25 | NUR ---
THE PATIENT GAVE PERSMISSION TO SPEAK TO HIS DAUGHTER REGARDING HIS VISIT. DEMARCUS DUTTA, DAUGHTER CONTACTED THE ED REQUESTING AN UPDATE. I INFORMED THE PATIENT TO WHAT IS GOING ON WITH HER FATHER. DEMARCUS DUTTA DAUGHTER AND HER PHONE NUMBER IS [phone]
[2020-01-25 22:56] VITALS: BP 100/50
[2020-01-25 23:21] VITALS: BP 100/61
--- NOTE | 2020-01-25 23:39 | NUR ---
YEIMI REYES IN TO ROOM TO INITIATE BLOOD.
[2020-01-25 23:55] VITALS: BP 98/51
[2020-01-26] VITALS (40 sets, daily range): BP systolic 87–143; BP diastolic 37–117
[2020-01-26 00:15] LABS: BILIRUBIN Negative (Negative); BLOOD Negative (Negative); CLARITY Clear (Clear); COLOR Yellow (Yellow); GLUCOSE Negative (Negative); KETONE Negative (Negative); LEUKO ESTERASE Negative (Negative); NITRITE Negative (Negative); PH 7.5 (4.5-8.0); SPECIFIC GRAVITY <= 1.005 (1.001-1.030)
[2020-01-26 00:23] LABS: RBC 0-2 rbc/hpf (0-2); WBC 0-2 wbc/hpf (0-5)
--- NOTE | 2020-01-26 03:32 | NUR ---
ASSUMED PT CARE FROM ERIC MCDERMOTT RN
--- NOTE | 2020-01-26 04:26 | NUR ---
PT UP USING URINAL NO DISTRESS NOTED CALL LIGHT WITHIN REACH RN WILL CONTINUE TO MONITOR
--- NOTE | 2020-01-26 06:38 | NUR ---
PT RESTING IN BED WITH EYES CLOSED, NO ACUTE DISTRESS NOTED, RESP EASY NON LABORED, CALL LIGHT WITHIN REACH, RN WILL CONTINUE TO MONITOR
[2020-01-26 07:07] LABS: MEAN CORPUSCULAR HGB 34.1 pg (27.0-31.0); MEAN CORPUSCULAR HGB CONC 34.5 g/dl (33.0-37.0); MEAN PLATELET VOLUME 11.4 fl (9.6-12.3); NUCLEATED RED BLOOD CELL 0.9 % (0.0-0.0); PLATELET COUNT AUTOMATED 100 10*3/uL (130-400); RED BLOOD COUNT 1.79 10*6/uL (4.50-5.90); RED CELL DISTRI WIDTH 26.4 % (0-14.5); WHITE BLOOD COUNT 4.4 10*3/uL (4.8-10.8)
[2020-01-26 07:09] LABS: MEAN CELL VOLUME 98.9 fl (80.0-94.0)
--- NOTE | 2020-01-26 07:10 | NUR ---
NURSE TO NURSE GIVEN TO NIKOLAS JALLOH
[2020-01-26 07:12] LABS: HEMATOCRIT 17.7 % (42.0-52.0)
[2020-01-26 07:17] LABS: BUN 9 mg/dl (7-24); CHLORIDE 102 mmol/L (98-107); CREATININE 0.72 mg/dL (0.70-1.30); SODIUM 134 mmol/L (136-145)
--- NOTE | 2020-01-26 07:32 | NUR ---
PT RESTING IN BED WITH EYES CLOSED. EASILY AWAKENED. A+OX3. RESPIRATIONS EASY AND REGULAR. CALL LIGHT IN REACH.
[2020-01-26 07:45] LABS: BASOPHILS 1 % (0-1); PLATELET SUFFICIENCY LOW (NORMAL); TOTAL CELLS COUNTED 100 #CELLS
--- NOTE | 2020-01-26 11:17 | NUR ---
CARE TRANSFERRED TO DEMARCUS JALLOH
--- NOTE | 2020-01-26 12:00 | NUR ---
THE PATIENT KEPT BENDING HIS ARM AND HIS IV PUMP CONTINUED TO ALARM. A NEW IV WAS STARTED IN THE LEFT FOREARM
--- NOTE | 2020-01-26 12:51 | NUR ---
THE PATIENT GAVE VERBAL CONSENT TO SPEAK WITH HIS DEMARCUS. I DID UPDATE HER
--- NOTE | 2020-01-26 13:34 | NUR ---
THE BLOOD HAS INFUSED AND A SET OF VITAL RECORDED INTHE CHART
--- NOTE | 2020-01-26 14:00 | NUR ---
DR BHATTI WAS CALLED AND TOLD THE INFUSION IF COMPLETE
[2020-01-26 16:21] LABS: BASO # 0.1 10*3/uL (0.0-0.1); BASO % 1.8 % (0.0-1.0); EOS # 0.1 10*3/uL (0.0-0.4); EOS % 1.1 % (1.0-4.0); LYMPH # 1.6 10*3/uL (1.3-4.4); LYMPH % 36.3 % (27.0-41.0); MEAN CELL VOLUME 97.6 fl (80.0-94.0); MEAN CORPUSCULAR HGB 32.4 pg (27.0-31.0); MEAN CORPUSCULAR HGB CONC 33.2 g/dl (33.0-37.0); MEAN PLATELET VOLUME 11.1 fl (9.6-12.3); MONO # 0.6 10*3/uL (0.1-1.0); MONO % 13.1 % (3.0-9.0); NEUT # 2.2 10*3/uL (2.3-7.9); NEUT % 47.5 % (47.0-73.0); NUCLEATED RED BLOOD CELL 0.7 % (0.0-0.0); PLATELET COUNT AUTOMATED 96 10*3/uL (130-400); RED CELL DISTRI WIDTH 25.3 % (0-14.5); WHITE BLOOD COUNT 4.5 10*3/uL (4.8-10.8)
[2020-01-26 16:36] LABS: HEMATOCRIT 20.5 % (42.0-52.0)
[2020-01-26 16:45] LABS: PLATELET SUFFICIENCY LOW (NORMAL); TOTAL CELLS COUNTED 100 #CELLS
[2020-01-26 16:46] LABS: MICROCYTOSIS MODERATE
--- NOTE | 2020-01-26 21:20 | NUR ---
THE PATIENT GOT UP TO THE RESTROOM. HE WAS GIVEN A CLEAN BED.
--- NOTE | 2020-01-26 21:50 | NUR ---
I SPOKE WITH DR Hailey VILLARREAL AND TOLD HIM THE LAB SAID THEY NEED A TRANSFUSE ORDER PUT IN FOR THE BLOOD
--- NOTE | 2020-01-26 23:13 | NUR ---
PT IS RESTING IN BED WITHOUT SIGNS OF ACUTE DISTRESS NOTED.
[2020-01-27] VITALS (14 sets, daily range): BP systolic 97–128; BP diastolic 50–74
--- NOTE | 2020-01-27 02:29 | NUR ---
PT RESTING IN BED. SLEEPING AT THIS TIME. WILL CONTINUE TO MONITOR. VSS. 5TH BAG OF PRB INFUSING WITHOUT DIFFICULTY.
--- NOTE | 2020-01-27 04:23 | NUR ---
PT BLOOD HAS TRANSFUSED.
--- NOTE | 2020-01-27 04:44 | NUR ---
SPOKE WITH DR STEVENS ABOUT PT COMPLETING BLOOD TRANSFUSIONS. PHYSICIAN STATES HE WILL ORDER A CBC.
[2020-01-27 07:20] LABS: BASO # 0.1 10*3/uL (0.0-0.1); BASO % 1.3 % (0.0-1.0); EOS # 0.1 10*3/uL (0.0-0.4); EOS % 1.9 % (1.0-4.0); HEMATOCRIT 27.5 % (42.0-52.0); LYMPH # 1.3 10*3/uL (1.3-4.4); LYMPH % 23.5 % (27.0-41.0); MEAN CORPUSCULAR HGB 31.6 pg (27.0-31.0); MEAN CORPUSCULAR HGB CONC 33.8 g/dl (33.0-37.0); MEAN PLATELET VOLUME 10.7 fl (9.6-12.3); MONO # 0.6 10*3/uL (0.1-1.0); MONO % 10.3 % (3.0-9.0); NEUT # 3.3 10*3/uL (2.3-7.9); NEUT % 62.6 % (47.0-73.0); NUCLEATED RED BLOOD CELL 0.4 % (0.0-0.0); PLATELET COUNT AUTOMATED 97 10*3/uL (130-400); RED BLOOD COUNT 2.94 10*6/uL (4.50-5.90); RED CELL DISTRI WIDTH 22.4 % (0-14.5); WHITE BLOOD COUNT 5.3 10*3/uL (4.8-10.8)
[2020-01-27 07:21] LABS: MEAN CELL VOLUME 93.5 fl (80.0-94.0)
[2020-01-27 07:49] LABS: ALBUMIN 3.1 gm/dl (3.1-4.5); ALKALINE PHOSPHATASE 64 U/L (45-117); BUN 9 mg/dl (7-24); CHLORIDE 105 mmol/L (98-107); CREATININE 0.82 mg/dL (0.70-1.30); POTASSIUM 3.8 mmol/L (3.5-5.1); SGOT/AST 38 IU/L (3-35); SGPT/ALT 28 U/L (12-78); SODIUM 134 mmol/L (136-145); TOTAL PROTEIN 6.7 gm/dL (6.4-8.2)
--- NOTE | 2020-01-27 08:00 | NUR ---
PT A&OX3, DENIES CHEST PAIN, SOB,OR DIZZINESS, AMBULATING IN ROOM BY SELF, ENCOURAGED TO LIMIT WALKING OUTSIDE ROOM TO RESTROOM VISITS ONLY C/O PAIN ACROSS SHOULDERS FROM PREVIOUS ILLNESSES, CHRONIC ISSUE PER PATIENT
== END 2020-01-27 10:31 | disposition home or self-care (01) | DRG 813 ==
LOC: ED 19:52 → EDHOLD 22:50
PROVIDERS: Hospitalist; Internal Medicine; Physician Assistant; Student in an Organized Health Care Education/Training Program; ADMIT Student in an Organized Health Care Education/Training Program; ATTEND Student in an Organized Health Care Education/Training Program
PROC: 30233N1 Transfusion of Nonautologous Red Blood Cells into Peripheral Vein, Percutaneous Approach (ICD-10-PCS; principal; 2020-01-26)
DX: D69.6 Thrombocytopenia, unspecified (principal); E87.2 Acidosis; E44.0 Moderate protein-calorie malnutrition; E87.1 Hypo-osmolality and hyponatremia; D53.9 Nutritional anemia, unspecified; J44.9 Chronic obstructive pulmonary disease, unspecified; K57.90 Diverticulosis of intestine, part unspecified, without perforation or abscess without bleeding; K21.9 Gastro-esophageal reflux disease without esophagitis; I10 Essential (primary) hypertension; R73.9 Hyperglycemia, unspecified; F17.210 Nicotine dependence, cigarettes, uncomplicated; G20 Parkinson's disease; R74.01 Elevation of levels of liver transaminase levels; Z93.0 Tracheostomy status; Z93.1 Gastrostomy status; Z81.8 Family history of other mental and behavioral disorders; Z71.6 Tobacco abuse counseling; Z68.25 Body mass index [BMI] 25.0-25.9, adult; Z79.899 Other long term (current) drug therapy

== ENCOUNTER 2020-04-16 23:10 | Inpatient (IN) | payer MEDICARE ==
[~2020-04-16] VITALS: Ht 175.2 cm; Wt 72.8 kg
[2020-04-16 23:23] VITALS: BP 117/50
[2020-04-17] VITALS (35 sets, daily range): BP systolic 61–128; BP diastolic 32–84
[2020-04-17 00:06] LABS: INTERNATIONAL NORM RATIO 1.2 (2.0-3.5)
[2020-04-17 00:11] LABS: ALBUMIN 3.1 gm/dl (3.1-4.5); ALKALINE PHOSPHATASE 79 U/L (45-117); BUN 12 mg/dl (7-24); CHLORIDE 94 mmol/L (98-107); CREATININE 1.15 mg/dL (0.70-1.30); POTASSIUM 4.2 mmol/L (3.5-5.1); SGOT/AST 62 IU/L (3-35); SGPT/ALT 48 U/L (12-78); SODIUM 123 mmol/L (136-145); TOTAL PROTEIN 6.8 gm/dL (6.4-8.2)
[2020-04-17 00:19] LABS: MEAN CELL VOLUME 118.7 fl (80.0-94.0); MEAN CORPUSCULAR HGB 40.2 pg (27.0-31.0); MEAN CORPUSCULAR HGB CONC 33.9 g/dl (33.0-37.0); MEAN PLATELET VOLUME 12.1 fl (9.6-12.3); NUCLEATED RED BLOOD CELL 0.1 10*3/uL (0.0-0.0); NUCLEATED RED BLOOD CELL 1.8 % (0.0-0.0); PLATELET COUNT AUTOMATED 92 10*3/uL (130-400); RED BLOOD COUNT 1.07 10*6/uL (4.50-5.90); WHITE BLOOD COUNT 3.9 10*3/uL (4.8-10.8)
[2020-04-17 00:19] LABS: TROPONIN I < 0.015 ng/ml (<0.045)
[2020-04-17 00:34] LABS: HEMATOCRIT 12.7 % (42.0-52.0)
[2020-04-17 01:25] LABS: BASOPHILS 2 % (0-1); TOTAL CELLS COUNTED 100 #CELLS
[2020-04-17 01:26] LABS: PLATELET SUFFICIENCY LOW (NORMAL)
[2020-04-17 01:27] LABS: BURR CELLS FEW
[2020-04-17] MEDS ORDERED: QUETIAPINE FUMA25 MG PO (06:38)
[2020-04-17 07:23] LABS: MEAN CORPUSCULAR HGB 34.3 pg (27.0-31.0); MEAN CORPUSCULAR HGB CONC 33.9 g/dl (33.0-37.0); MEAN PLATELET VOLUME 12.1 fl (9.6-12.3); PLATELET COUNT AUTOMATED 90 10*3/uL (130-400); RED BLOOD COUNT 1.72 10*6/uL (4.50-5.90); RED CELL DISTRI WIDTH 24.3 % (0-14.5); WHITE BLOOD COUNT 4.1 10*3/uL (4.8-10.8)
[2020-04-17 07:26] LABS: MEAN CELL VOLUME 101.2 fl (80.0-94.0)
[2020-04-17 07:27] LABS: HEMATOCRIT 17.4 % (42.0-52.0)
[2020-04-17 07:52] LABS: BASOPHILS 1 % (0-1); PLATELET SUFFICIENCY LOW (NORMAL); ROULEAUX SLIGHT; SCHISTOCYTES FEW; TOTAL CELLS COUNTED 100 #CELLS
[2020-04-17 07:53] LABS: POLYCHROMASIA SLIGHT
[2020-04-17 11:10] LABS: HEMATOCRIT 21.2 % (42.0-52.0)
[2020-04-17 11:56] LABS: ALBUMIN 2.8 gm/dl (3.1-4.5); ALKALINE PHOSPHATASE 76 U/L (45-117); BUN 14 mg/dl (7-24); CHLORIDE 99 mmol/L (98-107); CREATININE 1.09 mg/dL (0.70-1.30); POTASSIUM 4.2 mmol/L (3.5-5.1); SGOT/AST 60 IU/L (3-35); SGPT/ALT 43 U/L (12-78); SODIUM 128 mmol/L (136-145); TOTAL PROTEIN 5.8 gm/dL (6.4-8.2)
[2020-04-17 15:13] LABS: HEMATOCRIT 26.6 % (42.0-52.0); MEAN CELL VOLUME 98.9 fl (80.0-94.0); MEAN CORPUSCULAR HGB 34.2 pg (27.0-31.0); MEAN CORPUSCULAR HGB CONC 34.6 g/dl (33.0-37.0); MEAN PLATELET VOLUME 11.5 fl (9.6-12.3); NUCLEATED RED BLOOD CELL 0.1 10*3/uL (0.0-0.0); NUCLEATED RED BLOOD CELL 2.1 % (0.0-0.0); PLATELET COUNT AUTOMATED 91 10*3/uL (130-400); RED BLOOD COUNT 2.69 10*6/uL (4.50-5.90); RED CELL DISTRI WIDTH 21.2 % (0-14.5); WHITE BLOOD COUNT 5.7 10*3/uL (4.8-10.8)
[2020-04-17 15:45] LABS: BASOPHILS 1 % (0-1); PLATELET SUFFICIENCY LOW (NORMAL); TOTAL CELLS COUNTED 100 #CELLS
[2020-04-17 15:46] LABS: BURR CELLS FEW; MICROCYTOSIS SLIGHT
[2020-04-18] VITALS (8 sets, daily range): BP systolic 123–160; BP diastolic 60–80
[2020-04-18 06:09] LABS: ALBUMIN 2.7 gm/dl (3.1-4.5); ALKALINE PHOSPHATASE 75 U/L (45-117); BUN 12 mg/dl (7-24); CHLORIDE 104 mmol/L (98-107); CREATININE 0.86 mg/dL (0.70-1.30); POTASSIUM 3.6 mmol/L (3.5-5.1); SGOT/AST 57 IU/L (3-35); SGPT/ALT 43 U/L (12-78); SODIUM 131 mmol/L (136-145); TOTAL PROTEIN 5.8 gm/dL (6.4-8.2)
[2020-04-18 06:13] LABS: BASO % 0.6 % (0.0-1.0); EOS % 0.4 % (1.0-4.0); HEMATOCRIT 22.6 % (42.0-52.0); LYMPH # 0.6 10*3/uL (1.3-4.4); LYMPH % 13.6 % (27.0-41.0); MEAN CELL VOLUME 97.8 fl (80.0-94.0); MEAN CORPUSCULAR HGB 34.6 pg (27.0-31.0); MEAN CORPUSCULAR HGB CONC 35.4 g/dl (33.0-37.0); MEAN PLATELET VOLUME 12.5 fl (9.6-12.3); MONO # 0.4 10*3/uL (0.1-1.0); MONO % 8.1 % (3.0-9.0); NEUT # 3.6 10*3/uL (2.3-7.9); NEUT % 76.9 % (47.0-73.0); NUCLEATED RED BLOOD CELL 0.8 % (0.0-0.0); PLATELET COUNT AUTOMATED 70 10*3/uL (130-400); RED BLOOD COUNT 2.31 10*6/uL (4.50-5.90); RED CELL DISTRI WIDTH 21.5 % (0-14.5); WHITE BLOOD COUNT 4.7 10*3/uL (4.8-10.8)
[2020-04-19] VITALS: BP 104/88
[2020-04-19 06:33] LABS: BASO # 0.1 10*3/uL (0.0-0.1); BASO % 1.4 % (0.0-1.0); EOS % 0.2 % (1.0-4.0); HEMATOCRIT 21.4 % (42.0-52.0); LYMPH # 0.9 10*3/uL (1.3-4.4); LYMPH % 17.1 % (27.0-41.0); MEAN CORPUSCULAR HGB 34.9 pg (27.0-31.0); MEAN CORPUSCULAR HGB CONC 34.1 g/dl (33.0-37.0); MONO # 0.7 10*3/uL (0.1-1.0); MONO % 13.6 % (3.0-9.0); NEUT # 3.5 10*3/uL (2.3-7.9); NEUT % 67.3 % (47.0-73.0); NUCLEATED RED BLOOD CELL 0.6 % (0.0-0.0); PLATELET COUNT AUTOMATED 64 10*3/uL (130-400); RED BLOOD COUNT 2.09 10*6/uL (4.50-5.90); WHITE BLOOD COUNT 5.2 10*3/uL (4.8-10.8)
[2020-04-19 06:40] LABS: MEAN CELL VOLUME 102.4 fl (80.0-94.0)
[2020-04-19 07:03] LABS: ALBUMIN 2.4 gm/dl (3.1-4.5); ALKALINE PHOSPHATASE 63 U/L (45-117); BUN 7 mg/dl (7-24); CHLORIDE 103 mmol/L (98-107); CREATININE 0.87 mg/dL (0.70-1.30); POTASSIUM 3.7 mmol/L (3.5-5.1); SGOT/AST 38 IU/L (3-35); SGPT/ALT 35 U/L (12-78); SODIUM 132 mmol/L (136-145); TOTAL PROTEIN 5.5 gm/dL (6.4-8.2)
[2020-04-19 08:00] VITALS: BP 121/62
[2020-04-19] MEDS ORDERED: NATURE'S BLEND F1 MG PO ×2 (11:04)
[2020-04-19] MEDS ORDERED: AUGMENTIN 875-875 MG PO ×2 (11:04)
== END 2020-04-19 12:10 | disposition home or self-care (01) | DRG 812 ==
LOC: ED 23:10 → EDHOLD 04-17 01:28 → ICCU 04-17 01:28 → EDHOLD 04-17 04:34 → ICCU 04-17 07:15 → 5E 04-18 19:01
PROVIDERS: Emergency Medicine; Internal Medicine; Internal Medicine Nephrology; ADMIT Emergency Medicine; ATTEND Emergency Medicine
PROC: 30233N1 Transfusion of Nonautologous Red Blood Cells into Peripheral Vein, Percutaneous Approach (ICD-10-PCS; principal; 2020-04-17)
PROC: 0DB68ZX Excision of Stomach, Via Natural or Artificial Opening Endoscopic, Diagnostic (ICD-10-PCS; 2020-04-18)
PROC: 0CDXXZ1 Extraction of Lower Tooth, Multiple, External Approach (ICD-10-PCS; 2020-04-18)
DX: D53.9 Nutritional anemia, unspecified (principal); E87.1 Hypo-osmolality and hyponatremia; E44.0 Moderate protein-calorie malnutrition; F17.210 Nicotine dependence, cigarettes, uncomplicated; G20 Parkinson's disease; K21.9 Gastro-esophageal reflux disease without esophagitis; M19.90 Unspecified osteoarthritis, unspecified site; Z20.822 Contact with and (suspected) exposure to COVID-19; D69.6 Thrombocytopenia, unspecified; E80.6 Other disorders of bilirubin metabolism; R74.01 Elevation of levels of liver transaminase levels; R73.9 Hyperglycemia, unspecified; K57.30 Diverticulosis of large intestine without perforation or abscess without bleeding; I10 Essential (primary) hypertension; J44.9 Chronic obstructive pulmonary disease, unspecified; E83.39 Other disorders of phosphorus metabolism; E83.42 Hypomagnesemia; E53.8 Deficiency of other specified B group vitamins; K02.9 Dental caries, unspecified; K04.7 Periapical abscess without sinus; R13.10 Dysphagia, unspecified; K29.70 Gastritis, unspecified, without bleeding; Z93.0 Tracheostomy status; Z71.6 Tobacco abuse counseling; Z93.1 Gastrostomy status; Z79.899 Other long term (current) drug therapy; Z79.1 Long term (current) use of non-steroidal anti-inflammatories (NSAID); Z68.23 Body mass index [BMI] 23.0-23.9, adult

== ENCOUNTER 2020-06-02 22:04 | Inpatient (IN) | payer MEDICARE ==
[~2020-06-02] VITALS: Ht 175.2 cm; Wt 69.1 kg
[~2020-06-02 22:04] MED LIST changes: +AUGMENTIN 875-875 MG PO; +QUETIAPINE FUMA25 MG PO
[2020-06-02 22:15] VITALS: BP 130/61
[2020-06-02 22:39] LABS: MEAN CELL VOLUME 103.1 fl (80.0-94.0); MEAN CORPUSCULAR HGB 36.1 pg (27.0-31.0); MEAN PLATELET VOLUME 13.5 fl (9.6-12.3); NUCLEATED RED BLOOD CELL 0.6 % (0.0-0.0); PLATELET COUNT AUTOMATED 112 10*3/uL (130-400); RED BLOOD COUNT 0.97 10*6/uL (4.50-5.90); RED CELL DISTRI WIDTH 24.9 % (0-14.5); WHITE BLOOD COUNT 3.4 10*3/uL (4.8-10.8)
[2020-06-02 22:51] VITALS: BP 94/53
[2020-06-02 22:55] LABS: ALBUMIN 3.1 gm/dl (3.1-4.5); ALKALINE PHOSPHATASE 84 U/L (45-117); BUN 8 mg/dl (7-24); CHLORIDE 94 mmol/L (98-107); CREATININE 0.95 mg/dL (0.70-1.30); SGOT/AST 98 IU/L (3-35); SGPT/ALT 54 U/L (12-78); SODIUM 125 mmol/L (136-145); TOTAL PROTEIN 6.9 gm/dL (6.4-8.2)
[2020-06-02 23:04] VITALS: BP 95/54
[2020-06-02 23:06] LABS: PLATELET SUFFICIENCY LOW (NORMAL); TOTAL CELLS COUNTED 100 #CELLS
[2020-06-02 23:07] LABS: BURR CELLS FEW
[2020-06-02 23:23] VITALS: BP 92/53
[2020-06-02 23:49] VITALS: BP 102/55
[2020-06-02 23:50] VITALS: BP 102/55
[2020-06-03] VITALS (20 sets, daily range): BP systolic 91–124; BP diastolic 37–86
[2020-06-03 03:26] LABS: MEAN CORPUSCULAR HGB 32.7 pg (27.0-31.0); MEAN CORPUSCULAR HGB CONC 34.2 g/dl (33.0-37.0); MEAN PLATELET VOLUME 12.1 fl (9.6-12.3); NUCLEATED RED BLOOD CELL 0.6 % (0.0-0.0); RED BLOOD COUNT 1.68 10*6/uL (4.50-5.90); RED CELL DISTRI WIDTH 18.6 % (0-14.5); WHITE BLOOD COUNT 3.4 10*3/uL (4.8-10.8)
[2020-06-03 03:31] LABS: MEAN CELL VOLUME 95.8 fl (80.0-94.0)
[2020-06-03 03:33] LABS: HEMATOCRIT 16.1 % (42.0-52.0)
[2020-06-03 03:36] LABS: PLATELET COUNT AUTOMATED 48 10*3/uL (130-400)
[2020-06-03 04:25] LABS: BURR CELLS FEW; PLATELET SUFFICIENCY LOW (NORMAL); TOTAL CELLS COUNTED 100 #CELLS
[2020-06-03 04:26] LABS: SCHISTOCYTES FEW
[2020-06-03 08:46] LABS: BASO % 0.6 % (0.0-1.0); EOS % 0.3 % (1.0-4.0); LYMPH # 0.7 10*3/uL (1.3-4.4); LYMPH % 20.8 % (27.0-41.0); MEAN CORPUSCULAR HGB 32.7 pg (27.0-31.0); MEAN CORPUSCULAR HGB CONC 34.8 g/dl (33.0-37.0); MEAN PLATELET VOLUME 12.5 fl (9.6-12.3); MONO # 0.2 10*3/uL (0.1-1.0); MONO % 5.4 % (3.0-9.0); NEUT # 2.3 10*3/uL (2.3-7.9); NEUT % 72.6 % (47.0-73.0); NUCLEATED RED BLOOD CELL 0.6 % (0.0-0.0); PLATELET COUNT AUTOMATED 50 10*3/uL (130-400); RED BLOOD COUNT 2.17 10*6/uL (4.50-5.90); RED CELL DISTRI WIDTH 18.3 % (0-14.5); WHITE BLOOD COUNT 3.2 10*3/uL (4.8-10.8)
[2020-06-03 08:49] LABS: HEMATOCRIT 20.4 % (42.0-52.0)
[2020-06-03 08:55] LABS: INTERNATIONAL NORM RATIO 1.1 (2.0-3.5)
[2020-06-03 09:14] LABS: BUN 10 mg/dl (7-24); CHLORIDE 100 mmol/L (98-107); CREATININE 0.96 mg/dL (0.70-1.30); SGOT/AST 96 IU/L (3-35); SGPT/ALT 51 U/L (12-78); SODIUM 130 mmol/L (136-145); TOTAL PROTEIN 6.8 gm/dL (6.4-8.2)
[2020-06-03 09:19] LABS: ALKALINE PHOSPHATASE 82 U/L (45-117)
[2020-06-04] VITALS (7 sets, daily range): BP systolic 96–114; BP diastolic 48–66
[2020-06-04 06:03] LABS: ALBUMIN 2.6 gm/dl (3.1-4.5); ALKALINE PHOSPHATASE 71 U/L (45-117); BUN 13 mg/dl (7-24); CHLORIDE 103 mmol/L (98-107); CREATININE 0.87 mg/dL (0.70-1.30); POTASSIUM 3.7 mmol/L (3.5-5.1); SGOT/AST 58 IU/L (3-35); SGPT/ALT 40 U/L (12-78); SODIUM 131 mmol/L (136-145); TOTAL PROTEIN 5.8 gm/dL (6.4-8.2)
[2020-06-04 06:33] LABS: MEAN CELL VOLUME 96.2 fl (80.0-94.0); MEAN CORPUSCULAR HGB CONC 34.3 g/dl (33.0-37.0); PLATELET COUNT AUTOMATED 63 10*3/uL (130-400); RED BLOOD COUNT 1.82 10*6/uL (4.50-5.90); RED CELL DISTRI WIDTH 19.7 % (0-14.5); WHITE BLOOD COUNT 3.4 10*3/uL (4.8-10.8)
[2020-06-04 06:40] LABS: HEMATOCRIT 17.5 % (42.0-52.0)
[2020-06-04 07:17] LABS: PLATELET SUFFICIENCY LOW (NORMAL); TOTAL CELLS COUNTED 100 #CELLS
== END 2020-06-04 11:44 | disposition left against medical advice (07) | DRG 809 ==
LOC: ED 22:04 → EDHOLD 06-03 00:12 → ICCU 06-03 00:35 → 4E 06-03 14:33
PROVIDERS: Internal Medicine; Student in an Organized Health Care Education/Training Program; ADMIT Internal Medicine; ATTEND Internal Medicine
PROC: 30233N1 Transfusion of Nonautologous Red Blood Cells into Peripheral Vein, Percutaneous Approach (ICD-10-PCS; principal; 2020-06-03)
PROC: 30233R1 Transfusion of Nonautologous Platelets into Peripheral Vein, Percutaneous Approach (ICD-10-PCS; 2020-06-03)
DX: D61.818 Other pancytopenia (principal); E87.1 Hypo-osmolality and hyponatremia; E44.0 Moderate protein-calorie malnutrition; F17.210 Nicotine dependence, cigarettes, uncomplicated; Z82.0 Family history of epilepsy and other diseases of the nervous system; E83.42 Hypomagnesemia; I10 Essential (primary) hypertension; E87.8 Other disorders of electrolyte and fluid balance, not elsewhere classified; K21.9 Gastro-esophageal reflux disease without esophagitis; J44.9 Chronic obstructive pulmonary disease, unspecified; Z53.29 Procedure and treatment not carried out because of patient's decision for other reasons; D53.9 Nutritional anemia, unspecified; E53.8 Deficiency of other specified B group vitamins; G20 Parkinson's disease; Z93.0 Tracheostomy status; Z79.899 Other long term (current) drug therapy; Z79.1 Long term (current) use of non-steroidal anti-inflammatories (NSAID); Z71.6 Tobacco abuse counseling

== ENCOUNTER 2020-08-07 10:28 | Emergency (ER) | payer MEDICARE ==
[~2020-08-07] VITALS: Ht 175.2 cm; Wt 72.1 kg
[~2020-08-07 10:28] MED LIST changes: +CALCIUM CARBON200 MG PO; +Rocaltrol0.25 MCG PO
[2020-08-07 11:30] LABS: BASO # 0.1 10*3/uL (0.0-0.1); BASO % 2.1 % (0.0-1.0); EOS # 0.1 10*3/uL (0.0-0.4); EOS % 1.3 % (1.0-4.0); HEMATOCRIT 26.6 % (42.0-52.0); LYMPH # 1.7 10*3/uL (1.3-4.4); LYMPH % 35.6 % (27.0-41.0); MEAN CELL VOLUME 90.5 fl (80.0-94.0); MEAN CORPUSCULAR HGB 30.3 pg (27.0-31.0); MEAN CORPUSCULAR HGB CONC 33.5 g/dl (33.0-37.0); MEAN PLATELET VOLUME 11.7 fl (9.6-12.3); MONO # 0.5 10*3/uL (0.1-1.0); MONO % 10.8 % (3.0-9.0); NEUT # 2.4 10*3/uL (2.3-7.9); PLATELET COUNT AUTOMATED 122 10*3/uL (130-400); RED BLOOD COUNT 2.94 10*6/uL (4.50-5.90); RED CELL DISTRI WIDTH 18.7 % (0-14.5); WHITE BLOOD COUNT 4.7 10*3/uL (4.8-10.8)
[2020-08-07 11:49] LABS: ALBUMIN 2.7 gm/dl (3.1-4.5); ALKALINE PHOSPHATASE 96 U/L (45-117); BUN 6 mg/dl (7-24); CHLORIDE 100 mmol/L (98-107); CREATININE 0.62 mg/dL (0.70-1.30); LIPASE 87 U/L (73-393); POTASSIUM 3.7 mmol/L (3.5-5.1); SGOT/AST 59 IU/L (3-35); SGPT/ALT 45 U/L (12-78); SODIUM 130 mmol/L (136-145); TROPONIN I 0.031 ng/ml (<0.045)
[2020-08-07 14:41] LABS: BILIRUBIN Negative (Negative); BLOOD Negative (Negative); COLOR Yellow (Yellow); GLUCOSE Negative (Negative); KETONE Negative (Negative); PH 6.5 (4.5-8.0); SPECIFIC GRAVITY 1.015 (1.001-1.030)
[2020-08-07 14:42] LABS: CLARITY Cloudy (Clear); LEUKO ESTERASE Negative (Negative); NITRITE Negative (Negative); UROBILINOGEN < 2.0 E.U./dl (0.0-1.0)
[2020-08-07 14:43] LABS: BACTERIA 1+; EPITHELIAL CELLS 51-100; WBC 0-2 wbc/hpf (0-5)
== END 2020-08-07 15:48 | disposition home or self-care (01) ==
LOC: ED 10:28
PROVIDERS: Emergency Medicine
DX: M54.5 Low back pain (principal); F17.200 Nicotine dependence, unspecified, uncomplicated; Z79.899 Other long term (current) drug therapy; Z93.0 Tracheostomy status; Z93.1 Gastrostomy status; Z85.038 Personal history of other malignant neoplasm of large intestine

== ENCOUNTER 2020-09-23 10:54 | Inpatient (IN) | payer MEDICARE ==
[~2020-09-23] VITALS: Ht 175.2 cm; Wt 63.5 kg
[2020-09-23 10:57] VITALS: BP 147/86
[2020-09-23 11:44] LABS: HEMATOCRIT 21.3 % (42.0-52.0); MEAN CELL VOLUME 90.6 fl (80.0-94.0); MEAN CORPUSCULAR HGB 31.5 pg (27.0-31.0); MEAN CORPUSCULAR HGB CONC 34.7 g/dl (33.0-37.0); MEAN PLATELET VOLUME 13.3 fl (9.6-12.3); NUCLEATED RED BLOOD CELL 0.6 % (0.0-0.0); PLATELET COUNT AUTOMATED 48 10*3/uL (130-400); RED BLOOD COUNT 2.35 10*6/uL (4.50-5.90); RED CELL DISTRI WIDTH 17.4 % (0-14.5); WHITE BLOOD COUNT 5.4 10*3/uL (4.8-10.8)
[2020-09-23 11:58] LABS: ALBUMIN 2.9 gm/dl (3.1-4.5); ALKALINE PHOSPHATASE 89 U/L (45-117); BUN 11 mg/dl (7-24); CHLORIDE 100 mmol/L (98-107); CREATININE 0.77 mg/dL (0.70-1.30); POTASSIUM 3.7 mmol/L (3.5-5.1); SGOT/AST 82 IU/L (3-35); SGPT/ALT 59 U/L (12-78); SODIUM 130 mmol/L (136-145)
[2020-09-23 11:59] LABS: BASOPHILS 2 % (0-1); PLATELET SUFFICIENCY LOW (NORMAL); TOTAL CELLS COUNTED 100 #CELLS
[2020-09-23 12:00] LABS: BURR CELLS FEW; ROULEAUX SLIGHT
[2020-09-23 17:38] VITALS: BP 147/86
[2020-09-23 18:00] VITALS: BP 132/87
[2020-09-23] MEDS ORDERED: CALCIUM CARBON600 M5 PO (18:30)
[2020-09-23] MEDS ORDERED: QUETIAPINE FUMA25 M1 PO (18:31)
[2020-09-23 19:46] LABS: BILIRUBIN Negative (Negative); BLOOD Trace-Lysed (Negative); CLARITY Cloudy (Clear); COLOR Yellow (Yellow); GLUCOSE Negative (Negative); KETONE Trace (Negative); LEUKO ESTERASE Negative (Negative); NITRITE Negative (Negative); PH 5.5 (4.5-8.0)
[2020-09-23 19:54] LABS: BACTERIA 2+; RBC 0-2 rbc/hpf (0-2)
[2020-09-23 20:00] VITALS: BP 133/88
[2020-09-23 20:18] LABS: ALBUMIN 2.7 gm/dl (3.1-4.5); ALKALINE PHOSPHATASE 84 U/L (45-117); BUN 11 mg/dl (7-24); CHLORIDE 101 mmol/L (98-107); CREATININE 0.77 mg/dL (0.70-1.30); POTASSIUM 3.3 mmol/L (3.5-5.1); SGOT/AST 99 IU/L (3-35); SGPT/ALT 58 U/L (12-78); SODIUM 130 mmol/L (136-145); TOTAL PROTEIN 6.5 gm/dL (6.4-8.2)
[2020-09-24] VITALS (9 sets, daily range): BP systolic 117–128; BP diastolic 68–98
[2020-09-24 05:30] LABS: ACT PARTIAL THROMBO TIME 30.2 SECONDS (20.0-32.1); INTERNATIONAL NORM RATIO 1.2 (2.0-3.5)
[2020-09-24 05:50] LABS: ALBUMIN 2.6 gm/dl (3.1-4.5); ALKALINE PHOSPHATASE 85 U/L (45-117); BUN 11 mg/dl (7-24); CHLORIDE 102 mmol/L (98-107); CHOLESTEROL 97 mg/dL (<200); CREATININE 0.68 mg/dL (0.70-1.30); FREE T4 1.14 ng/dl (0.76-1.46); LDL CHOLESTEROL 44 mg/dL (9-159); POTASSIUM 3.4 mmol/L (3.5-5.1); SGOT/AST 76 IU/L (3-35); SGPT/ALT 54 U/L (12-78); SODIUM 131 mmol/L (136-145); TOTAL PROTEIN 6.3 gm/dL (6.4-8.2); TRIGLYCERIDES 115 mg/dl (<150)
[2020-09-24 06:21] LABS: MEAN CELL VOLUME 91.5 fl (80.0-94.0); MEAN CORPUSCULAR HGB 30.8 pg (27.0-31.0); MEAN CORPUSCULAR HGB CONC 33.7 g/dl (33.0-37.0); MEAN PLATELET VOLUME 13.5 fl (9.6-12.3); NUCLEATED RED BLOOD CELL 0.1 10*3/uL (0.0-0.0); NUCLEATED RED BLOOD CELL 1.2 % (0.0-0.0); PLATELET COUNT AUTOMATED 40 10*3/uL (130-400); RED BLOOD COUNT 2.11 10*6/uL (4.50-5.90); RED CELL DISTRI WIDTH 17.3 % (0-14.5); WHITE BLOOD COUNT 4.2 10*3/uL (4.8-10.8)
[2020-09-24 06:34] LABS: HEMATOCRIT 19.3 % (42.0-52.0)
[2020-09-24 06:46] LABS: BASOPHILS 3 % (0-1); PLATELET SUFFICIENCY LOW (NORMAL); TOTAL CELLS COUNTED 100 #CELLS
[2020-09-24 06:48] LABS: BURR CELLS FEW; OVALOCYTES FEW; ROULEAUX SLIGHT
[2020-09-24 06:52] LABS: VITAMIN D, 25-HYDROXY 13.1 ng/mL (30-100)
[2020-09-24 18:42] LABS: BASO # 0.1 10*3/uL (0.0-0.1); EOS # 0.1 10*3/uL (0.0-0.4); EOS % 1.9 % (1.0-4.0); HEMATOCRIT 22.8 % (42.0-52.0); LYMPH # 1.9 10*3/uL (1.3-4.4); LYMPH % 32.1 % (27.0-41.0); MEAN CELL VOLUME 93.1 fl (80.0-94.0); MEAN CORPUSCULAR HGB CONC 33.3 g/dl (33.0-37.0); MEAN PLATELET VOLUME 12.8 fl (9.6-12.3); MONO # 0.5 10*3/uL (0.1-1.0); MONO % 8.6 % (3.0-9.0); NEUT # 3.2 10*3/uL (2.3-7.9); NUCLEATED RED BLOOD CELL 0.7 % (0.0-0.0); RED BLOOD COUNT 2.45 10*6/uL (4.50-5.90); WHITE BLOOD COUNT 5.8 10*3/uL (4.8-10.8)
[2020-09-24 18:43] LABS: PLATELET COUNT AUTOMATED 54 10*3/uL (130-400)
[2020-09-25] VITALS: BP 119/99
[2020-09-25 06:02] LABS: MEAN CELL VOLUME 91.3 fl (80.0-94.0); MEAN CORPUSCULAR HGB 31.7 pg (27.0-31.0); MEAN CORPUSCULAR HGB CONC 34.8 g/dl (33.0-37.0); MEAN PLATELET VOLUME 13.1 fl (9.6-12.3); NUCLEATED RED BLOOD CELL 0.1 10*3/uL (0.0-0.0); NUCLEATED RED BLOOD CELL 1.3 % (0.0-0.0); PLATELET COUNT AUTOMATED 52 10*3/uL (130-400); WHITE BLOOD COUNT 4.7 10*3/uL (4.8-10.8)
[2020-09-25 06:15] LABS: ALBUMIN 2.7 gm/dl (3.1-4.5); BUN 10 mg/dl (7-24); CHLORIDE 105 mmol/L (98-107); CREATININE 0.61 mg/dL (0.70-1.30); POTASSIUM 3.3 mmol/L (3.5-5.1); SGOT/AST 58 IU/L (3-35); SGPT/ALT 49 U/L (12-78); SODIUM 131 mmol/L (136-145); TOTAL PROTEIN 6.3 gm/dL (6.4-8.2)
[2020-09-25 06:16] LABS: ALKALINE PHOSPHATASE 111 U/L (45-117)
[2020-09-25 07:40] LABS: BASOPHILS 3 % (0-1); BURR CELLS MODERATE; PLATELET SUFFICIENCY LOW (NORMAL); POLYCHROMASIA SLIGHT; TOTAL CELLS COUNTED 100 #CELLS
[2020-09-25 08:00] VITALS: BP 135/81
[2020-09-25 12:00] VITALS: BP 148/77
[2020-09-25 16:00] VITALS: BP 143/79
[2020-09-25 17:20] LABS: ALBUMIN 2.6 gm/dl (3.1-4.5); ALKALINE PHOSPHATASE 124 U/L (45-117); BUN 10 mg/dl (7-24); CHLORIDE 106 mmol/L (98-107); CREATININE 0.76 mg/dL (0.70-1.30); POTASSIUM 3.7 mmol/L (3.5-5.1); SGOT/AST 68 IU/L (3-35); SGPT/ALT 49 U/L (12-78); SODIUM 130 mmol/L (136-145); TOTAL PROTEIN 6.3 gm/dL (6.4-8.2)
[2020-09-25 20:00] VITALS: BP 153/76
[2020-09-26] VITALS: BP 152/86
[2020-09-26 06:26] LABS: ALBUMIN 2.7 gm/dl (3.1-4.5); BUN 8 mg/dl (7-24); CHLORIDE 103 mmol/L (98-107); SODIUM 132 mmol/L (136-145)
[2020-09-26 06:29] LABS: HEMATOCRIT 22.2 % (42.0-52.0); MEAN CELL VOLUME 92.1 fl (80.0-94.0); MEAN CORPUSCULAR HGB 31.5 pg (27.0-31.0); MEAN CORPUSCULAR HGB CONC 34.2 g/dl (33.0-37.0); MEAN PLATELET VOLUME 12.9 fl (9.6-12.3); NUCLEATED RED BLOOD CELL 0.1 10*3/uL (0.0-0.0); NUCLEATED RED BLOOD CELL 1.3 % (0.0-0.0); PLATELET COUNT AUTOMATED 67 10*3/uL (130-400); RED BLOOD COUNT 2.41 10*6/uL (4.50-5.90); RED CELL DISTRI WIDTH 17.5 % (0-14.5); WHITE BLOOD COUNT 5.6 10*3/uL (4.8-10.8)
[2020-09-26 06:30] LABS: ALKALINE PHOSPHATASE 107 U/L (45-117); CREATININE 0.54 mg/dL (0.70-1.30); SGOT/AST 84 IU/L (3-35); SGPT/ALT 58 U/L (12-78); TOTAL PROTEIN 6.6 gm/dL (6.4-8.2)
[2020-09-26 07:01] LABS: BASOPHILS 2 % (0-1); PLATELET SUFFICIENCY LOW (NORMAL); TOTAL CELLS COUNTED 100 #CELLS
[2020-09-26 08:00] VITALS: BP 159/83
[2020-09-26] MEDS ORDERED: Rocaltrol0.25 MCG PO (11:48)
[2020-09-26] MEDS ORDERED: NATURE'S BLEND F1 MG PO (11:48)
[2020-09-26] MEDS ORDERED: VITAMIN D350 MC2 PO (11:48)
[2020-09-26] MEDS ORDERED: CALCIUM500 M1 PO (11:48)
[2020-09-26] MEDS ORDERED: MAGNESIUM OXID400 MG PO (11:48)
[2020-09-26 12:00] VITALS: BP 135/79
== END 2020-09-26 13:50 | disposition home health service (06) | DRG 640 ==
LOC: ED 10:54 → 4E 12:30 → EDHOLD 12:30 → 4E 17:56
PROVIDERS: Internal Medicine; Student in an Organized Health Care Education/Training Program; ADMIT Internal Medicine; ATTEND Internal Medicine
PROC: 30233N1 Transfusion of Nonautologous Red Blood Cells into Peripheral Vein, Percutaneous Approach (ICD-10-PCS; principal; 2020-09-24)
DX: E87.8 Other disorders of electrolyte and fluid balance, not elsewhere classified (principal); E43 Unspecified severe protein-calorie malnutrition; M54.9 Dorsalgia, unspecified; D69.6 Thrombocytopenia, unspecified; G89.29 Other chronic pain; E87.6 Hypokalemia; E83.51 Hypocalcemia; F17.210 Nicotine dependence, cigarettes, uncomplicated; E83.42 Hypomagnesemia; I10 Essential (primary) hypertension; K21.9 Gastro-esophageal reflux disease without esophagitis; J44.9 Chronic obstructive pulmonary disease, unspecified; E87.1 Hypo-osmolality and hyponatremia; D46.9 Myelodysplastic syndrome, unspecified; Z82.0 Family history of epilepsy and other diseases of the nervous system; Z79.1 Long term (current) use of non-steroidal anti-inflammatories (NSAID); Z79.899 Other long term (current) drug therapy; Z68.20 Body mass index [BMI] 20.0-20.9, adult

== ENCOUNTER 2021-10-15 20:22 | Inpatient (IN) | payer MEDICARE ==
[~2021-10-15] VITALS: Ht 175 cm; Wt 57.0 kg
[~2021-10-15 20:22] MED LIST changes: +CALCIUM CARBON600 M5 PO; +CALCIUM500 M1 PO; +MAGNESIUM OXID400 MG PO; +QUETIAPINE FUMA25 M1 PO; +VITAMIN D350 MC2 PO
[2021-10-15 20:27] VITALS: BP 125/79
[2021-10-15 20:57] LABS: HEMATOCRIT 26.7 % (42.0-52.0); MEAN CORPUSCULAR HGB 31.6 pg (27.0-31.0); MEAN CORPUSCULAR HGB CONC 36.3 g/dl (33.0-37.0); MEAN PLATELET VOLUME 13.2 fl (9.6-12.3); PLATELET COUNT AUTOMATED 34 10*3/uL (130-400); RED BLOOD COUNT 3.07 10*6/uL (4.50-5.90); RED CELL DISTRI WIDTH 14.7 % (0-14.5); WHITE BLOOD COUNT 4.3 10*3/uL (4.8-10.8)
[2021-10-15 20:59] LABS: MANUAL DIFF REFLEX YES
[2021-10-15 21:10] LABS: ACT PARTIAL THROMBO TIME 30.2 SECONDS (20.0-32.1); INTERNATIONAL NORM RATIO 1.2 (2.0-3.5)
[2021-10-15 21:11] LABS: ALKALINE PHOSPHATASE 57 U/L (45-117); BUN 18 mg/dl (7-24); CHLORIDE 110 mmol/L (98-107); CREATININE 1.37 mg/dL (0.70-1.30); POTASSIUM 4.5 mmol/L (3.5-5.1); SGOT/AST 53 IU/L (3-35); SGPT/ALT 23 U/L (12-78); SODIUM 136 mmol/L (136-145)
[2021-10-15 22:53] LABS: ATYPICAL LYMPHS 2 % (0-0); TOTAL CELLS COUNTED 100 #CELLS
[2021-10-15 22:54] LABS: BURR CELLS FEW; PLATELET SUFFICIENCY LOW (NORMAL); POLYCHROMASIA SLIGHT; TARGET CELLS FEW
[2021-10-16 01:40] VITALS: BP 121/79
[2021-10-16 06:27] LABS: BUN 18 mg/dl (7-24); CHLORIDE 110 mmol/L (98-107); CHOLESTEROL 114 mg/dL (<200); CREATININE 1.38 mg/dL (0.70-1.30); POTASSIUM 4.8 mmol/L (3.5-5.1); SGOT/AST 53 IU/L (3-35); SGPT/ALT 21 U/L (12-78); SODIUM 140 mmol/L (136-145); TOTAL PROTEIN 5.5 gm/dL (6.4-8.2); TRIGLYCERIDES 168 mg/dl (<150)
[2021-10-16 06:28] LABS: ALKALINE PHOSPHATASE 51 U/L (45-117); LDL CHOLESTEROL 52 mg/dL (9-159)
[2021-10-16 06:51] LABS: HEMATOCRIT 28.1 % (42.0-52.0); MEAN CELL VOLUME 89.2 fl (80.0-94.0); MEAN CORPUSCULAR HGB 31.7 pg (27.0-31.0); MEAN CORPUSCULAR HGB CONC 35.6 g/dl (33.0-37.0); PLATELET COUNT AUTOMATED 31 10*3/uL (130-400); RED BLOOD COUNT 3.15 10*6/uL (4.50-5.90); RED CELL DISTRI WIDTH 15.7 % (0-14.5); WHITE BLOOD COUNT 3.5 10*3/uL (4.8-10.8)
[2021-10-16 06:55] LABS: MANUAL DIFF REFLEX YES
[2021-10-16 07:33] LABS: ATYPICAL LYMPHS 1 % (0-0); PLATELET SUFFICIENCY LOW (NORMAL); TOTAL CELLS COUNTED 100 #CELLS
[2021-10-16 07:34] LABS: BURR CELLS FEW; MICROCYTOSIS SLIGHT; POLYCHROMASIA SLIGHT
[2021-10-16 08:00] VITALS: BP 122/70
[2021-10-16 12:00] VITALS: BP 107/75
[2021-10-16 16:00] VITALS: BP 100/68
[2021-10-16 20:00] VITALS: BP 125/60
[2021-10-17] VITALS (25 sets, daily range): BP systolic 101–136; BP diastolic 63–88
[2021-10-17 04:32] LABS: HEMATOCRIT 27.1 % (42.0-52.0); MEAN CELL VOLUME 89.1 fl (80.0-94.0); MEAN CORPUSCULAR HGB 31.3 pg (27.0-31.0); MEAN CORPUSCULAR HGB CONC 35.1 g/dl (33.0-37.0); MEAN PLATELET VOLUME 12.4 fl (9.6-12.3); RED BLOOD COUNT 3.04 10*6/uL (4.50-5.90); RED CELL DISTRI WIDTH 15.8 % (0-14.5)
[2021-10-17 04:35] LABS: INTERNATIONAL NORM RATIO 1.2 (2.0-3.5)
[2021-10-17 04:39] LABS: MANUAL DIFF REFLEX YES; PLATELET COUNT AUTOMATED 27 10*3/uL (130-400); WHITE BLOOD COUNT 1.5 10*3/uL (4.8-10.8)
[2021-10-17 04:49] LABS: PLATELET SUFFICIENCY LOW (NORMAL); POLYCHROMASIA SLIGHT; TOTAL CELLS COUNTED 100 #CELLS
[2021-10-17 04:50] LABS: BURR CELLS FEW
[2021-10-17 04:51] LABS: ATYPICAL LYMPHS 2 % (0-0)
[2021-10-17 04:56] LABS: IRON 83 ug/dL (65-175)
[2021-10-17 05:00] LABS: CREATININE 1.56 mg/dL (0.70-1.30); POTASSIUM 4.5 mmol/L (3.5-5.1)
[2021-10-17] MEDS ORDERED: ONDANSETRON8 MG PO (20:00)
[2021-10-17] MEDS ORDERED: SODIUM CHLORIDE1 GM PO (20:01)
[2021-10-17] MEDS ORDERED: MAGNESIUM400 M1 PO (20:02)
[2021-10-17] MEDS ORDERED: CARDIZEM LA120 MG PO (20:02)
[2021-10-17] MEDS ORDERED: CARAFATE1 G1 PO (20:03)
[2021-10-17 21:38] LABS: HEMATOCRIT 22.9 % (42.0-52.0); MEAN CELL VOLUME 89.1 fl (80.0-94.0); MEAN CORPUSCULAR HGB 31.5 pg (27.0-31.0); MEAN CORPUSCULAR HGB CONC 35.4 g/dl (33.0-37.0); MEAN PLATELET VOLUME 13.3 fl (9.6-12.3); RED BLOOD COUNT 2.57 10*6/uL (4.50-5.90); RED CELL DISTRI WIDTH 15.9 % (0-14.5); WHITE BLOOD COUNT 2.2 10*3/uL (4.8-10.8)
[2021-10-17 21:42] LABS: MANUAL DIFF REFLEX YES
[2021-10-17 21:49] LABS: BUN 18 mg/dl (7-24); CHLORIDE 106 mmol/L (98-107); CREATININE 1.44 mg/dL (0.70-1.30); POTASSIUM 3.4 mmol/L (3.5-5.1); SODIUM 136 mmol/L (136-145)
[2021-10-17 22:18] LABS: ATYPICAL LYMPHS 1 % (0-0); BURR CELLS FEW; OVALOCYTES FEW; PLATELET SUFFICIENCY LOW (NORMAL); POLYCHROMASIA SLIGHT; TOTAL CELLS COUNTED 100 #CELLS
[2021-10-17 22:24] LABS: PLATELET COUNT AUTOMATED 22 10*3/uL (130-400)
[2021-10-18] VITALS (21 sets, daily range): BP systolic 93–135; BP diastolic 57–88
[2021-10-18 06:14] LABS: HEMATOCRIT 21.2 % (42.0-52.0); MEAN CELL VOLUME 89.5 fl (80.0-94.0); MEAN CORPUSCULAR HGB 32.1 pg (27.0-31.0); MEAN CORPUSCULAR HGB CONC 35.8 g/dl (33.0-37.0); MEAN PLATELET VOLUME 12.3 fl (9.6-12.3); RED BLOOD COUNT 2.37 10*6/uL (4.50-5.90); RED CELL DISTRI WIDTH 15.9 % (0-14.5); WHITE BLOOD COUNT 2.7 10*3/uL (4.8-10.8)
[2021-10-18 06:19] LABS: BUN 17 mg/dl (7-24); CHLORIDE 110 mmol/L (98-107); POTASSIUM 3.5 mmol/L (3.5-5.1); SODIUM 138 mmol/L (136-145)
[2021-10-18 06:29] LABS: ALKALINE PHOSPHATASE 53 U/L (45-117); CREATININE 1.31 mg/dL (0.70-1.30); SGOT/AST 30 IU/L (3-35); SGPT/ALT 22 U/L (12-78); TOTAL PROTEIN 5.8 gm/dL (6.4-8.2)
[2021-10-18 06:43] LABS: MANUAL DIFF REFLEX YES; PLATELET COUNT AUTOMATED 49 10*3/uL (130-400)
[2021-10-18 07:27] LABS: PLATELET SUFFICIENCY LOW (NORMAL); TOTAL CELLS COUNTED 100 #CELLS
[2021-10-18 21:06] LABS: BILIRUBIN Negative (Negative); BLOOD 2+ (Negative); CLARITY Clear (Clear); COLOR Yellow (Yellow); GLUCOSE Negative (Negative); KETONE Negative (Negative); LEUKO ESTERASE Negative (Negative); NITRITE Negative (Negative); PH 5.5 (4.5-8.0); UROBILINOGEN 0.2 E.U./dl (0.0-1.0)
[2021-10-18 21:15] LABS: BACTERIA 1+; EPITHELIAL CELLS 0-2; RBC 31-40 rbc/hpf (0-2)
[2021-10-19] VITALS (7 sets, daily range): BP systolic 96–122; BP diastolic 60–86
[2021-10-19 05:43] LABS: ALKALINE PHOSPHATASE 55 U/L (45-117); BUN 18 mg/dl (7-24); CHLORIDE 108 mmol/L (98-107); CREATININE 1.16 mg/dL (0.70-1.30); POTASSIUM 3.4 mmol/L (3.5-5.1); SGOT/AST 32 IU/L (3-35); SGPT/ALT 23 U/L (12-78); SODIUM 136 mmol/L (136-145); TOTAL PROTEIN 5.6 gm/dL (6.4-8.2)
[2021-10-19 06:20] LABS: HEMATOCRIT 27.8 % (42.0-52.0); MEAN CELL VOLUME 91.4 fl (80.0-94.0); MEAN CORPUSCULAR HGB 32.2 pg (27.0-31.0); MEAN CORPUSCULAR HGB CONC 35.3 g/dl (33.0-37.0); MEAN PLATELET VOLUME 12.5 fl (9.6-12.3); PLATELET COUNT AUTOMATED 37 10*3/uL (130-400); RED BLOOD COUNT 3.04 10*6/uL (4.50-5.90); RED CELL DISTRI WIDTH 15.7 % (0-14.5); WHITE BLOOD COUNT 10.1 10*3/uL (4.8-10.8)
[2021-10-19 06:39] LABS: MANUAL DIFF REFLEX YES
[2021-10-19 07:05] LABS: TOTAL CELLS COUNTED 100 #CELLS
[2021-10-19 07:06] LABS: PLATELET SUFFICIENCY LOW (NORMAL)
[2021-10-20] VITALS (8 sets, daily range): BP systolic 82–103; BP diastolic 48–71
[2021-10-20 06:40] LABS: HEMATOCRIT 27.5 % (42.0-52.0); MEAN CELL VOLUME 91.7 fl (80.0-94.0); MEAN CORPUSCULAR HGB 31.7 pg (27.0-31.0); MEAN CORPUSCULAR HGB CONC 34.5 g/dl (33.0-37.0); RED CELL DISTRI WIDTH 15.8 % (0-14.5); WHITE BLOOD COUNT 11.8 10*3/uL (4.8-10.8)
[2021-10-20 06:51] LABS: MANUAL DIFF REFLEX YES
[2021-10-20 06:52] LABS: PLATELET COUNT AUTOMATED 26 10*3/uL (130-400)
[2021-10-20 06:58] LABS: BUN 21 mg/dl (7-24); CHLORIDE 107 mmol/L (98-107); CREATININE 1.03 mg/dL (0.70-1.30); POTASSIUM 3.1 mmol/L (3.5-5.1); SODIUM 137 mmol/L (136-145)
[2021-10-20 07:28] LABS: BURR CELLS FEW; PLATELET SUFFICIENCY LOW (NORMAL); TOTAL CELLS COUNTED 100 #CELLS
[2021-10-21 02:00] VITALS: BP 90/52
[2021-10-21 06:30] VITALS: BP 92/52
[2021-10-21 06:57] LABS: HEMATOCRIT 25.7 % (42.0-52.0); MEAN CELL VOLUME 92.8 fl (80.0-94.0); MEAN CORPUSCULAR HGB 32.1 pg (27.0-31.0); MEAN CORPUSCULAR HGB CONC 34.6 g/dl (33.0-37.0); RED BLOOD COUNT 2.77 10*6/uL (4.50-5.90); WHITE BLOOD COUNT 10.7 10*3/uL (4.8-10.8)
[2021-10-21 06:59] LABS: MANUAL DIFF REFLEX YES
[2021-10-21 07:00] LABS: PLATELET COUNT AUTOMATED 21 10*3/uL (130-400)
[2021-10-21 07:07] LABS: BUN 26 mg/dl (7-24); CHLORIDE 108 mmol/L (98-107); CREATININE 1.09 mg/dL (0.70-1.30); POTASSIUM 3.8 mmol/L (3.5-5.1); SODIUM 139 mmol/L (136-145)
[2021-10-21 07:36] LABS: BURR CELLS FEW; PLATELET SUFFICIENCY LOW (NORMAL); POLYCHROMASIA SLIGHT; SCHISTOCYTES FEW; TOTAL CELLS COUNTED 100 #CELLS
[2021-10-21 08:00] VITALS: BP 100/56
[2021-10-21 12:00] VITALS: BP 101/60
[2021-10-21 16:00] VITALS: BP 106/84
[2021-10-21 20:00] VITALS: BP 122/71
[2021-10-22] VITALS: BP 125/84
[2021-10-22 04:20] LABS: HEMATOCRIT 30.6 % (42.0-52.0); MEAN CELL VOLUME 93.9 fl (80.0-94.0); MEAN CORPUSCULAR HGB 31.6 pg (27.0-31.0); MEAN CORPUSCULAR HGB CONC 33.7 g/dl (33.0-37.0); RED BLOOD COUNT 3.26 10*6/uL (4.50-5.90); RED CELL DISTRI WIDTH 16.6 % (0-14.5); WHITE BLOOD COUNT 13.1 10*3/uL (4.8-10.8)
[2021-10-22 04:28] LABS: MANUAL DIFF REFLEX YES; PLATELET COUNT AUTOMATED 23 10*3/uL (130-400)
[2021-10-22 04:42] LABS: BASOPHILS 1 % (0-1); PLATELET SUFFICIENCY LOW (NORMAL); POLYCHROMASIA SLIGHT; TOTAL CELLS COUNTED 100 #CELLS
[2021-10-22 04:43] LABS: ACANTHOCYTES FEW; BURR CELLS FEW
[2021-10-22 04:44] LABS: BUN 29 mg/dl (7-24); CHLORIDE 109 mmol/L (98-107); CREATININE 1.05 mg/dL (0.70-1.30); POTASSIUM 3.9 mmol/L (3.5-5.1); SODIUM 134 mmol/L (136-145)
[2021-10-22 08:00] VITALS: BP 116/66
[2021-10-22 12:00] VITALS: BP 132/91
[2021-10-22 16:00] VITALS: BP 121/81
[2021-10-22 20:00] VITALS: BP 109/81
[2021-10-23] VITALS: BP 126/83
[2021-10-23 05:00] LABS: BUN 31 mg/dl (7-24); CHLORIDE 112 mmol/L (98-107); CREATININE 1.12 mg/dL (0.70-1.30); POTASSIUM 4.3 mmol/L (3.5-5.1); SODIUM 138 mmol/L (136-145)
[2021-10-23 06:32] LABS: HEMATOCRIT 28.7 % (42.0-52.0); MEAN CORPUSCULAR HGB 31.6 pg (27.0-31.0); MEAN CORPUSCULAR HGB CONC 32.1 g/dl (33.0-37.0); NUCLEATED RED BLOOD CELL 0.3 % (0.0-0.0); RED BLOOD COUNT 2.91 10*6/uL (4.50-5.90); RED CELL DISTRI WIDTH 16.5 % (0-14.5); WHITE BLOOD COUNT 6.6 10*3/uL (4.8-10.8)
[2021-10-23 06:33] LABS: MANUAL DIFF REFLEX YES; MEAN CELL VOLUME 98.6 fl (80.0-94.0)
[2021-10-23 06:35] LABS: PLATELET COUNT AUTOMATED 17 10*3/uL (130-400)
[2021-10-23 06:45] LABS: BURR CELLS FEW; OVALOCYTES FEW; PLATELET SUFFICIENCY LOW (NORMAL); POLYCHROMASIA SLIGHT; TOTAL CELLS COUNTED 100 #CELLS
[2021-10-23 08:00] VITALS: BP 104/57
[2021-10-23 16:00] VITALS: BP 108/70
[2021-10-23 20:00] VITALS: BP 116/64
[2021-10-23 23:45] VITALS: BP 70/46
[2021-10-24] VITALS (17 sets, daily range): BP systolic 85–131; BP diastolic 59–84
[2021-10-24 06:03] LABS: ALKALINE PHOSPHATASE 74 U/L (45-117); BUN 30 mg/dl (7-24); CHLORIDE 108 mmol/L (98-107); CREATININE 1.04 mg/dL (0.70-1.30); POTASSIUM 3.6 mmol/L (3.5-5.1); SGOT/AST 40 IU/L (3-35); SGPT/ALT 28 U/L (12-78); SODIUM 138 mmol/L (136-145); TOTAL PROTEIN 5.2 gm/dL (6.4-8.2)
[2021-10-24 06:48] LABS: MEAN CORPUSCULAR HGB 31.6 pg (27.0-31.0); MEAN CORPUSCULAR HGB CONC 33.9 g/dl (33.0-37.0); MEAN PLATELET VOLUME 11.1 fl (9.6-12.3); RED BLOOD COUNT 2.47 10*6/uL (4.50-5.90); RED CELL DISTRI WIDTH 16.2 % (0-14.5); WHITE BLOOD COUNT 3.7 10*3/uL (4.8-10.8)
[2021-10-24 06:56] LABS: MANUAL DIFF REFLEX YES; MEAN CELL VOLUME 93.1 fl (80.0-94.0)
[2021-10-24 06:57] LABS: PLATELET COUNT AUTOMATED 66 10*3/uL (130-400)
[2021-10-24 07:14] LABS: ATYPICAL LYMPHS 2 % (0-0); OVALOCYTES FEW; PLATELET SUFFICIENCY LOW (NORMAL); POLYCHROMASIA SLIGHT; SCHISTOCYTES FEW; TOTAL CELLS COUNTED 100 #CELLS
[2021-10-25] VITALS: BP 116/72
[2021-10-25 06:21] LABS: BUN 30 mg/dl (7-24); CHLORIDE 107 mmol/L (98-107); CREATININE 1.02 mg/dL (0.70-1.30); POTASSIUM 3.7 mmol/L (3.5-5.1); SODIUM 140 mmol/L (136-145)
[2021-10-25 06:37] LABS: HEMATOCRIT 28.8 % (42.0-52.0); MEAN CELL VOLUME 92.3 fl (80.0-94.0); MEAN CORPUSCULAR HGB 31.7 pg (27.0-31.0); MEAN CORPUSCULAR HGB CONC 34.4 g/dl (33.0-37.0); MEAN PLATELET VOLUME 11.4 fl (9.6-12.3); NUCLEATED RED BLOOD CELL 0.7 % (0.0-0.0); RED BLOOD COUNT 3.12 10*6/uL (4.50-5.90); RED CELL DISTRI WIDTH 15.7 % (0-14.5); WHITE BLOOD COUNT 2.7 10*3/uL (4.8-10.8)
[2021-10-25 06:40] LABS: MANUAL DIFF REFLEX YES; PLATELET COUNT AUTOMATED 33 10*3/uL (130-400)
[2021-10-25 07:21] LABS: ATYPICAL LYMPHS 1 % (0-0); BURR CELLS FEW; PLATELET SUFFICIENCY LOW (NORMAL); POLYCHROMASIA SLIGHT; TOTAL CELLS COUNTED 100 #CELLS
[2021-10-25 07:22] LABS: OVALOCYTES FEW; ROULEAUX SLIGHT
[2021-10-25 08:00] VITALS: BP 136/81
[2021-10-25] MEDS ORDERED: GRANIX SQ (12:13)
[2021-10-25] MEDS ORDERED: FLUONAZOLE200 M1 PO (12:13)
[2021-10-25] MEDS ORDERED: MUCINEX DM 30/61 TAB PO (12:13)
[2021-10-25] MEDS ORDERED: METOPROLOL SUCC50 M1 PO (12:13)
[2021-10-25] MEDS ORDERED: MESALAMINE4 GM/60 M1 R (12:13)
[2021-10-25] MEDS ORDERED: ATORVASTATIN CA80 M1 PO (12:13)
== END 2021-10-25 14:29 | DRG 377 ==
LOC: ED 20:22 → 4E 10-16 00:27 → EDHOLD 10-16 00:27 → 4E 10-16 00:50
PROVIDERS: Internal Medicine; Registered Nurse; Student in an Organized Health Care Education/Training Program; ADMIT Internal Medicine; ATTEND Internal Medicine
PROC: 0HBRXZZ Excision of Toe Nail, External Approach (ICD-10-PCS; 2021-10-16)
PROC: 0HBRXZZ Excision of Toe Nail, External Approach (ICD-10-PCS; 2021-10-16)
PROC: 0HBRXZZ Excision of Toe Nail, External Approach (ICD-10-PCS; 2021-10-16)
PROC: 0HBRXZZ Excision of Toe Nail, External Approach (ICD-10-PCS; 2021-10-16)
PROC: 0HBRXZZ Excision of Toe Nail, External Approach (ICD-10-PCS; 2021-10-16)
PROC: 0HBRXZZ Excision of Toe Nail, External Approach (ICD-10-PCS; 2021-10-16)
PROC: 0HBRXZZ Excision of Toe Nail, External Approach (ICD-10-PCS; 2021-10-16)
PROC: 0HBRXZZ Excision of Toe Nail, External Approach (ICD-10-PCS; 2021-10-16)
PROC: 0HBRXZZ Excision of Toe Nail, External Approach (ICD-10-PCS; 2021-10-16)
PROC: 0HBRXZZ Excision of Toe Nail, External Approach (ICD-10-PCS; 2021-10-16)
PROC: 30233L1 Transfusion of Nonautologous Fresh Plasma into Peripheral Vein, Percutaneous Approach (ICD-10-PCS; principal; 2021-10-17)
PROC: 30233N1 Transfusion of Nonautologous Red Blood Cells into Peripheral Vein, Percutaneous Approach (ICD-10-PCS; 2021-10-18)
PROC: 30233R1 Transfusion of Nonautologous Platelets into Peripheral Vein, Percutaneous Approach (ICD-10-PCS; 2021-10-18)
PROC: 0DB78ZX Excision of Stomach, Pylorus, Via Natural or Artificial Opening Endoscopic, Diagnostic (ICD-10-PCS; 2021-10-18)
PROC: 0DD58ZX Extraction of Esophagus, Via Natural or Artificial Opening Endoscopic, Diagnostic (ICD-10-PCS; 2021-10-18)
PROC: 0DBE8ZX Excision of Large Intestine, Via Natural or Artificial Opening Endoscopic, Diagnostic (ICD-10-PCS; 2021-10-18)
DX: K29.71 Gastritis, unspecified, with bleeding (principal); D61.89 Other specified aplastic anemias and other bone marrow failure syndromes; E43 Unspecified severe protein-calorie malnutrition; I21.4 Non-ST elevation (NSTEMI) myocardial infarction; J18.9 Pneumonia, unspecified organism; R18.8 Other ascites; I24.8 Other forms of acute ischemic heart disease; Z68.1 Body mass index [BMI] 19.9 or less, adult; K21.01 Gastro-esophageal reflux disease with esophagitis, with bleeding; Z20.822 Contact with and (suspected) exposure to COVID-19; I48.91 Unspecified atrial fibrillation; I12.9 Hypertensive chronic kidney disease with stage 1 through stage 4 chronic kidney disease, or unspecified chronic kidney disease; N18.31 Chronic kidney disease, stage 3a; M19.90 Unspecified osteoarthritis, unspecified site; J44.9 Chronic obstructive pulmonary disease, unspecified; D69.6 Thrombocytopenia, unspecified; D72.810 Lymphocytopenia; F17.200 Nicotine dependence, unspecified, uncomplicated; G20 Parkinson's disease; M10.9 Gout, unspecified; B35.1 Tinea unguium; Z66 Do not resuscitate; I25.10 Atherosclerotic heart disease of native coronary artery without angina pectoris; Z71.6 Tobacco abuse counseling; Z93.0 Tracheostomy status; Z81.8 Family history of other mental and behavioral disorders; Z51.5 Encounter for palliative care

== ENCOUNTER 2021-10-27 12:35 | Emergency (ER) | payer MEDICARE | END 2021-10-27 16:45 | disposition home or self-care (01) | LOC: ED 12:35 | DX: D69.6 Thrombocytopenia, unspecified (principal); D46.9 Myelodysplastic syndrome, unspecified; M19.90 Unspecified osteoarthritis, unspecified site; I25.10 Atherosclerotic heart disease of native coronary artery without angina pectoris; J44.9 Chronic obstructive pulmonary disease, unspecified; I10 Essential (primary) hypertension; K21.9 Gastro-esophageal reflux disease without esophagitis; I25.2 Old myocardial infarction; G20 Parkinson's disease; E43 Unspecified severe protein-calorie malnutrition; F17.200 Nicotine dependence, unspecified, uncomplicated; Z79.899 Other long term (current) drug therapy; Z85.038 Personal history of other malignant neoplasm of large intestine ==

== ENCOUNTER → 2021-10-27 | Outpatient (CLI) | payer MEDICARE ==
[~2021-10-27] MED LIST changes: +ATORVASTATIN CA80 M1 PO; +CARAFATE1 G1 PO; +CARDIZEM LA120 MG PO; +FLUONAZOLE200 M1 PO; +GRANIX SQ; +MAGNESIUM400 M1 PO; +MESALAMINE4 GM/60 M1 R; +METOPROLOL SUCC50 M1 PO; +MUCINEX DM 30/61 TAB PO; +ONDANSETRON8 MG PO; +SODIUM CHLORIDE1 GM PO
== END | disposition home or self-care (01) ==
LOC: TRNFUSION 10-26 20:00
PROVIDERS: ATTEND Internal Medicine
DX: D69.6 Thrombocytopenia, unspecified (principal)